=== PATIENT | female | born 1995 | race Caucasian/White ===

== ENCOUNTER 2017-07-14 08:59 | Emergency (ER) | payer SELFPAY ==
[2017-07-14 09:21] VITALS: BP 118/57; PULSE 90; RESP 16; TEMP 36.8; O2SAT 98; BMI 21.2
--- NOTE | 2017-07-14 09:36 | HMH.EDEYEP ---
ED Disposition Clinical Impression: Subconjunctival hemorrhage Disposition: Home, Self-Care Condition on Discharge: Good Instructions: DI for Subconjunctival Hemorrhage Additional Instructions: Tylenol as needed for hangover type of headache, limit alcohol consumption to fewer than three drinks in the future, anticipate change in color of the sclera or whites of eyes as the blood gets reabsorbed over the next few weeks and this bruising resolves. Referrals: Terry Jarvis MD [Primary Care Provider] - - Critical Care Critical Care Time: No Attestation: On 07/14/17, the high probability of a clinically significant, sudden or life threatening deterioration of the following system(s) required my full and direct attention, intervention and personal management. The time I documented below is in addition to time spent performing reported procedures but includes the following listed in this critical care notation. Medical Decision Making - Medical Records Medical records reviewed: Yes: I reviewed the patient's medical records. Vital Signs: 07/14/17 09:21 Temperature 98.2 F Temperature Source Oral Pulse Rate [Right Brachial] 90 Respiratory Rate 16 Blood Pressure [Right Radial Artery] 118/57 Blood Pressure Mean [Right Radial Artery] 77 Blood Pressure Source [Right Radial Artery] Automatic Cuff Blood Pressure Position [Right Radial Artery] Sitting 02 Sat by Pulse Oximetry 98 Oxygen Delivery Method Room Air - Don Inquiry Pt receiving controlled substance: No Eye Problem HPI - General Chief complaint: Eye Problems Stated complaint: red spots in eye Time Seen by Provider: 07/14/17 09:38 Mode of Arrival: Ambulatory Limitations: No Limitations Description of Symptoms (Recalled from ER Triage Doc. by RN): busted blood vessels in both eyes from vomiting this morning. i got a hangover and. was concerned about the eyes - History of Present Illness HPI Narrative: Patient states she drank four shots of alcohol last night and vomited in the middle of the night. She looked at her eyes this morning and noted they were blood shot. No change in vision chief complaint: eye redness - Related Data Patient tetanus UTD: Yes Allergies Allergy/AdvReac Type Severity Reaction Status Date / Time AMOXICILLIN Allergy Intermediate I-RASH Uncoded 06/27/17 15:22 [facility] History - *Social History Alcohol Intake: current Alcohol Intake Frequency:: a few times a month - Psychiatric History Expresses thoughts of harming self/others: None Suicide Plan Description: No Plan ROS Obtained: Yes All systems reviewed & no additional complaints except as noted - Neurologic Reports headache(s), Reports other (Patient reports diffuse headache after drinking and vomiting last night. ) Physical Exam - General General appearance: alert, in no apparent distress - Head Head exam: atraumatic, normocephalic - Eye Eye exam: Present: PERRL, EOMI, conjunctival redness, other (Sub-conjunctival hemorrhages noted bilaterally. No hyphema. Lids and orbits are normal as checked. Her diplopia or visual field cuts noted.) - ENT ENT exam: Present: normal exam - Neck Neck exam: Present: normal inspection - Respiratory Respiratory exam: Absent: respiratory distress - Cardiovascular Cardiovascular exam: Present: regular rate - Neurological Exam Neurological exam: Present: alert, oriented X3, CN II-XII intact, other (Visual acuity reported by RN as normal as checked) - Psychiatric Psychiatric exam: Present: normal affect, normal mood - Skin Skin exam: Present: warm, dry, intact, normal color, other (Other than some conjunctival hemorrhages as noted, atraumatic.). Absent: erythema, pallor, mottled
--- NOTE | 2017-07-14 09:47 | ED_ITS ---
ED Disposition Clinical Impression: Subconjunctival hemorrhage Disposition: Home, Self-Care Condition on Discharge: Good Instructions: DI for Subconjunctival Hemorrhage Additional Instructions: Tylenol as needed for hangover type of headache, limit alcohol consumption to fewer than three drinks in the future, anticipate change in color of the sclera or whites of eyes as the blood gets reabsorbed over the next few weeks and this bruising resolves. Referrals: Terry Jarvis MD [Primary Care Provider] - - Critical Care Critical Care Time: No Attestation: On 07/14/17, the high probability of a clinically significant, sudden or life threatening deterioration of the following system(s) required my full and direct attention, intervention and personal management. The time I documented below is in addition to time spent performing reported procedures but includes the following listed in this critical care notation. Medical Decision Making - Medical Records Medical records reviewed: Yes: I reviewed the patient's medical records. Vital Signs: 07/14/17 09:21 Temperature 98.2 F Temperature Source Oral Pulse Rate [Right Brachial] 90 Respiratory Rate 16 Blood Pressure [Right Radial Artery] 118/57 Blood Pressure Mean [Right Radial Artery] 77 Blood Pressure Source [Right Radial Artery] Automatic Cuff Blood Pressure Position [Right Radial Artery] Sitting 02 Sat by Pulse Oximetry 98 Oxygen Delivery Method Room Air - Don Inquiry Pt receiving controlled substance: No Eye Problem HPI - General Chief complaint: Eye Problems Stated complaint: red spots in eye Time Seen by Provider: 07/14/17 09:38 Mode of Arrival: Ambulatory Limitations: No Limitations Description of Symptoms (Recalled from ER Triage Doc. by RN): busted blood vessels in both eyes from vomiting this morning. i got a hangover and. was concerned about the eyes - History of Present Illness HPI Narrative: Patient states she drank four shots of alcohol last night and vomited in the middle of the night. She looked at her eyes this morning and noted they were blood shot. No change in vision chief complaint: eye redness - Related Data Patient tetanus UTD: Yes Allergies Allergy/AdvReac Type Severity Reaction Status Date / Time AMOXICILLIN Allergy Intermediate I-RASH Uncoded 06/27/17 15:22 [facility] History - *Social History Alcohol Intake: current Alcohol Intake Frequency:: a few times a month - Psychiatric History Expresses thoughts of harming self/others: None Suicide Plan Description: No Plan ROS Obtained: Yes All systems reviewed & no additional complaints except as noted - Neurologic Reports headache(s), Reports other (Patient reports diffuse headache after drinking and vomiting last night. ) Physical Exam - General General appearance: alert, in no apparent distress - Head Head exam: atraumatic, normocephalic - Eye Eye exam: Present: PERRL, EOMI, conjunctival redness, other (Sub-conjunctival hemorrhages noted bilaterally. No hyphema. Lids and orbits are normal as checked. Her diplopia or visual field cuts noted.) - ENT ENT exam: Present: normal exam - Neck Neck exam: Present: normal inspection - Respiratory Respiratory exam: Absent: respiratory distress - Cardiovascular Cardiovascular exam: Present: regular rate - Neurological
[2017-07-14 10:54] VITALS: BP 132/75; PULSE 70; RESP 18; O2SAT 99
== END 2017-07-14 10:59 | disposition home or self-care (01) ==
PROVIDERS: Emergency Provider Emergency Medicine; Family Provider Internal Medicine Adolescent Medicine; PCP Internal Medicine Adolescent Medicine
DX: H11.33 Conjunctival hemorrhage, bilateral (principal)
CPT/HCPCS: 99283

== ENCOUNTER → 2018-12-24 14:50 | Outpatient (CLI) | payer MEDICAID, SELFPAY ==
[2018-12-24 15:31] LABS: Basophils % 0.4 % (0.1-2.0); Eosinophils # 0.2 K/mm3 (0.0-0.4); Eosinophils % 2.3 % (0.1-12.0); Hematocrit 39.8 % (37.0-47.0); Hemoglobin 12.9 g/dL (12.2-16.2); Lymphocytes # 2.9 K/mm3 (0.7-4.5); Lymphocytes % 28.3 % (10-50); Mean Corpuscular HGB Conc 32.6 g/dL (31.8-35.4); Mean Corpuscular Hemoglobin 28.3 pg (27.0-31.2); Mean Platelet Volume 8.3 fl (7.4-10.4); Monocytes # 0.5 K/mm3 (0.1-1.0); Monocytes % 5.2 % (1.7-9.3); Neutrophils # 6.4 K/mm3 (1.8-7.8); Neutrophils % 63.7 % (37.0-80.0); Platelet Count 244 K/mm3 (142-424); Red Blood Count 4.57 M/mm3 (4.20-5.40); Red Cell Distribution Width 12.2 % (11.5-17.5); White Blood Count 10.1 K/mm3 (4.8-10.8)
[2018-12-26 06:27] LABS: HIV Screen 4th Generation wRfx Non Reactive (Non Reactive)
[2018-12-27 07:45] LABS: Hepatitis B Surface Antigen Negative (Negative); Hepatitis C Antibody <0.1 s/co ratio (0.0-0.9); Rapid Plasma Reagin Ab Titer Non Reactive (NonRea<1:1); Rubella Antibodies, IgG <0.90 index (Immune >0.99)
== END ==
PROVIDERS: Visit Provider Nurse Practitioner Obstetrics & Gynecology
DX: Z34.90 Encounter for supervision of normal pregnancy, unspecified, unspecified trimester (principal); Z3A.01 Less than 8 weeks gestation of pregnancy
CPT/HCPCS: 36415; 85025; 86592; 86703; 86762; 86850; 87340; 87380; G0432

== ENCOUNTER → 2018-12-31 13:59 | Outpatient (CLI) | payer MEDICAID, SELFPAY ==
--- NOTE | 2018-12-31 14:01 | US_ITS ---
US OB transvaginal ORDERING PHYSICIAN : Tay Menezes MD PATIENT AGE: 23 years GENDER: Female HISTORY:ITS.REASON: US OB Dates COMPARISON: None TECHNIQUE: Routine transvaginal images. FINDINGS: Exam show single intrauterine fetus along with a yolk sac and gestational sac. The crown-rump length is 1.4 cm corresponding to 7 weeks and 6 days gestational age. Heart rate is 146 bpm. Right ovary is 2.5 x 1.7 x 2.0 cm. Left ovary is 3.4 x 2.3 x 2.7 cm. There is blood flow to both ovaries. There is small amount of cul-de-sac fluid. Left ovary shows a 1.5 cm anechoic focus with distal acoustic enhancement suggesting a small luteal cyst. IMPRESSION: Intrauterine single fetus is described above with heart rate of 146 bpm approximately 7 weeks and 6 days gestational age.
== END ==
PROVIDERS: PCP Internal Medicine Adolescent Medicine; Visit Provider Nurse Practitioner Obstetrics & Gynecology
DX: O26.841 Uterine size-date discrepancy, first trimester (principal)
CPT/HCPCS: 76817

== ENCOUNTER → 2019-03-27 12:11 | Outpatient (CLI) | payer MEDICAID, SELFPAY ==
--- NOTE | 2019-03-27 12:19 | US_ITS ---
PROCEDURE: US OB /MATERNAL DETAIL CLINICAL INDICATION: us ob complete COMPARISON: [facility] US OB transvaginal from 12/31/2018 FINDINGS: Single viable intrauterine gestation. Cephalic position. Placenta: Posteriorplacenta grade 1. There is average amount fluid. The cervix appears satisfactory. Closed and measuring 3 cm in length. Complete survey performed and was unremarkable on the submitted images as in PACS. No discrete anomalies identified on survey imaging by technologist. Active fetus. Three-vessel cord with satisfactory umbilical cord insertion. 4- chamber heart noted. Survey of brain & ventricles Unremarkable. Face and neck survey unremarkable. Diaphragm and chest views unremarkable. Abdomen: Both kidneys noted and unremarkable. Stomach noted and satisfactory. Spine: Survey of the spine satisfactory with no anomalies identified nor imaged. Both arms and legs noted. Amniotic Fluid: Adequate. Maternal adnexa: No significant findings. Measurements: Average ultrasound age 19 weeks 6 days. Gestational Age 20 weeks 0 days Estimated due date by ultrasound age 0208/2019. Estimated weight 313.4 ggrams. BPD = 20 weeks 2 days OFD = 19 weeks 6 days HC = 19 weeks 1 day AC = 20 weeks 0 days FL = 19 weeks 5 days Growth Percentile= 34 percent% Heart Rate = 150 bpm Cerebellum = 20 weeks 1 day Humerus = 20 weeks 0 days HC/AC is 1.11 CI is 0.83 FL/BPD is 0.66 FL/AC is 0.21 IMPRESSION: There is a single live fetus which is in cephalic presentation. heart and body motion noted. Average ultrasound age is 19 weeks 6 days. All parameters correlate. No obvious anomalies apparent. Please see above for detail Dictated by: Juan Rojas MD 03/28/2019 10:06 Electronically signed by Juan Rojas MD in [facility] 03/28/2019 10:06
== END ==
PROVIDERS: PCP Internal Medicine Adolescent Medicine; Visit Provider Nurse Practitioner Obstetrics & Gynecology
DX: Z36.0 Encounter for antenatal screening for chromosomal anomalies (principal)
CPT/HCPCS: 76811

== ENCOUNTER 2019-04-18 12:10 | Outpatient (CLI) | payer MEDICAID, SELFPAY ==
[2019-04-18 12:28] VITALS: BP 123/67; PULSE 80; RESP 18; TEMP 37.3; O2SAT 96; BMI 23.0
[2019-04-18 12:58] LABS: Microscopic, Urine URINE MICROSCOPIC (MICROSCOPIC)
[2019-04-18 13:02] LABS: Appearance,Urine CLEAR (Clear); Bilirubin,Urine Negative (Negative); Blood, Urine Negative (Negative); Color,Urine YELLOW (Yellow); Glucose,Urine (UA) Negative (Negative); Ketones,Urine 1+ (Negative); Leukocyte Esterase,Urine 1+ (Negative); Nitrate,Urine Negative (Negative); Protein,Urine Negative (Negative); Specific Gravity, Urine <= 1.005 (1.005-1.030); Urobilinogen,Urine 0.2 EU/dl (0.2)
[2019-04-18 13:10] LABS: Amphetamine/Metha Screen,Urine Negative ng/mL (<1000); Barbiturates Screen,Urine Negative ng/mL (<200); Benzodiazepines Screen,Urine Negative ng/mL (<200); Cannabinoid Screen,Urine Negative ng/mL (<50); Cocaine Screen,Urine Negative ng/mL (<300); Methadone Screen,Urine Negative ng/mL (<300); Opiate Screen,Urine Negative ng/mL (<300); Phencyclidine Screen,Urine Negative ng/mL (<25)
[2019-04-18 13:13] LABS: Bacteria,Urine 1+ /lpf
== END 2019-04-18 14:12 | disposition home or self-care (01) ==
LOC: OBOUT 12:13 → OB 12:13
PROVIDERS: Obstetrics & Gynecology; PCP Internal Medicine Adolescent Medicine; Visit Provider Nurse Practitioner Obstetrics & Gynecology
DX: O47.02 False labor before 37 completed weeks of gestation, second trimester (principal); Z3A.23 23 weeks gestation of pregnancy; R11.2 Nausea with vomiting, unspecified
CPT/HCPCS: 59025; 80305; 81001; 87086

== ENCOUNTER → 2019-05-23 07:22 | Outpatient (CLI) | payer MEDICAID, SELFPAY ==
[2019-05-23 08:06] LABS: Glucose,Fasting 87 mg/dL (60-105)
[2019-05-23 09:06] LABS: Glucose 1 Hour 152 mg/dL (74-106)
== END ==
PROVIDERS: Visit Provider Nurse Practitioner Obstetrics & Gynecology
DX: Z34.90 Encounter for supervision of normal pregnancy, unspecified, unspecified trimester (principal)
CPT/HCPCS: 36415; 82951

== ENCOUNTER → 2019-07-15 17:46 | Outpatient (CLI) | payer SELFPAY | PROVIDERS: Visit Provider Nurse Practitioner Obstetrics & Gynecology | DX: Z34.90 Encounter for supervision of normal pregnancy, unspecified, unspecified trimester (principal) | CPT/HCPCS: 86403 ==

== ENCOUNTER → 2019-07-18 14:47 | Outpatient (CLI) | payer MEDICAID, SELFPAY ==
--- NOTE | 2019-07-18 14:53 | US_ITS ---
PROCEDURE: US OB BIOPHYSICAL PROFILE CLINICAL INDICATION: US OB BPP Growth- Possible Breech and SGA TECHNIQUE: FINDINGS: There is a single live fetus in breech presentation. The cervix is closed measuring 2.6 cm transabdominal. Following parameters are obtained, average ultrasound age 33 weeks 2 days, BPD 32 weeks 4 days, OFD 35 weeks 3 days, HC 33 weeks 5 days, AC 32 weeks 6 days, FL 33 weeks 4 days. Estimated weight is 2101 g. This is 2 percentile indicating small for gestational age. heart tones are present 132 beats per minute. The placenta is posterior and grade 3. Amniotic fluid index: 5.27cm Qualitative AFV: 2 breathing movements: 2 Gross body movements: 2 Tone: 2 Biophysical profile score: 8 IMPRESSION: 1. Single live fetus in breech presentation with an average ultrasound age 33 weeks 2 days. Estimated weight is 2101 g which is 2nd percentile indicating small for gestational age. 2. Posterior grade 3 placenta. 3. Low amniotic fluid volume/oligohydramnios. 4. Biophysical profile 8 of 8 Dictated by: Juan Rojas MD 07/18/2019 17:41 Electronically signed by Juan Rojas MD in [facility] 07/18/2019 17:41
== END ==
PROVIDERS: PCP Internal Medicine Adolescent Medicine; Visit Provider Nurse Practitioner Obstetrics & Gynecology
DX: O32.1XX0 Maternal care for breech presentation, not applicable or unspecified (principal); O36.5990 Maternal care for other known or suspected poor fetal growth, unspecified trimester, not applicable or unspecified
CPT/HCPCS: 76816; 76819

== ENCOUNTER 2019-07-24 06:01 | Inpatient (IN) ==
[2019-07-24 07:03] LABS: Anion Gap 12.6 mEq/L (5-15); Calcium 8.5 mg/dL (8.5-10.1)
[2019-07-24 07:07] LABS: Basophils % 0.3 % (0.1-2.0); Eosinophils # 0.2 K/mm3 (0.0-0.4); Eosinophils % 1.3 % (0.1-12.0); Hematocrit 35.1 % (37.0-47.0); Hemoglobin 11.4 g/dL (12.2-16.2); Lymphocytes # 3.5 K/mm3 (0.7-4.5); Lymphocytes % 25.1 % (10-50); Mean Corpuscular HGB Conc 32.4 g/dL (31.8-35.4); Mean Corpuscular Volume 85.9 fl (81-99); Mean Platelet Volume 9.2 fl (7.4-10.4); Monocytes # 0.7 K/mm3 (0.1-1.0); Monocytes % 4.8 % (1.7-9.3); Neutrophils # 9.4 K/mm3 (1.8-7.8); Neutrophils % 68.4 % (37.0-80.0); Platelet Count 214 K/mm3 (142-424); Red Blood Count 4.08 M/mm3 (4.20-5.40); Red Cell Distribution Width 13.2 % (11.5-17.5); White Blood Count 13.7 K/mm3 (4.8-10.8)
--- NOTE | 2019-07-24 07:19 | Progress Note ---
[facility] Anesthesia Checklist - Patient Identification Patient Identification: Arm Band, Verbal (Name & ) - Structural Data Admitted From: Home Planned Operative Procedure/s: Consent for Planned Operative Procedure(s) Verified: Yes Verified Documents: Surgical Consent, History and Physical - NPO Status Verified Time NPO: 23:30 - Chart Verification Results Verified: CBC, BMP - Additional verifications Patient : Yes Anesthesia Reactions: No - Airway Assessment C-Spine Mobility Assessed: Yes TMJ Mobility Assessed: Yes Dentition: Good Dentition - Neurological Assessment Level of Consciousness: Awake, Alert, Appropriate, Follows Commands Hx Seizures: No Numbness or tingling in extremities: No - Anesthesia Plan Anesthesia Risk discussed: Yes Anesthesia Plan: Verified ASA Class: II Anesthesia Type: Spinal [facility] History I have reviewed the patient's past medical history: Yes Medical History: Reports:: Gastroesophageal Reflux Disease(GERD) *Have you ever received a pneumonia vaccine?: No *Have you received a flu vaccine this season?: Yes Anesthesia experience/problems:: no complications Laterality Cases: Bilateral: Myringotomy (Ear Tubes), Tonsillectomy Other Surgeries: No: Amputation: No Fractures: No - *Social History Smoking Status: Current every day smoker Tobacco Type: e-cigarettes (juul) Alcohol Intake: current Alcohol Intake Frequency:: a few times a month Substance Use Type: denies use *Occupational Status:: employed *Travel in the last 8 weeks: None (NA) Family Hx:: Hypertension, Hyperlipidemia
--- NOTE | 2019-07-24 08:16 | Operative Note ---
Date of procedure: 07/24/19 Pre-op Diagnosis:: Breech presentation, oligohydramnios, intrauterine growth restriction Post-op Diagnosis:: Breech presentation, oligohydramnios, intrauterine growth restriction Procedure performed:: Primary lower segment transverse section Surgeon:: Tay Menezes MD Machine Accountant(s):: Kamilla Bliss HOUSE MOVER:: Iain Parker Anesthesia: spinal Estimated blood loss (mL): 600 Clinical Note:: She is a 24-year-old 1 para 0 who was 37 weeks gestational age. She has been followed over the last couple of weeks for small for gestational age . The baby was also breech. Last ultrasound showed that the amniotic fluid index was low and the baby was severe IUGR. As result of that we elected to perform a primary lower segment transverse section. Operative findings:: She delivered a liveborn female child at 7:44 AM on the morning of July 24, 2019. The baby had Apgars of 9 at 1 minute and 9 at 5 minutes. She was in the saba breech presentation. There was very little fluid. pH was 7.39. Ovaries and tubes appeared normal. Operative note:: She was taken to the operating room where spinal anesthesia was found be adequate. She was prepped and draped in normal sterile fashion in the supine position with a leftward tilt. A Llanes catheter was in the bladder. A Pfannenstiel skin incision was made with knife then carried through to the underlying layer of fascia with cautery. The fascia was opened in the midline with cautery and extended laterally using Mahoney scissors. Guilford clamps were applied to the superior aspect of the fascial incision which was tented up and the underlying rectus muscles dissected off using cautery. The Priscilla clamps were then applied to the inferior aspect of the fascial incision which in a similar fashion was tented up and the underlying rectus muscles dissected off using cau wendy. The rectus muscles were then in the midline, the peritoneum identified, and entered sharply with Metzenbaum scissors. This incision was then extended superiorly and inferiorly with cautery. We had good visualization of the bladder inferiorly. The bladder peritoneum was then opened in the midline and extended laterally using Metzenbaum scissors. A bladder flap was created digitally. Transverse incision was made through the uterine muscle to the amnion. This incision was then extended laterally using fingers traction. The amnion was entered sharply with knife. There was clear amniotic fluid. The infant's breech was then delivered atraumatically. The rest of the infant's body was then delivered atraumatically. The oropharynx and nasopharynx were bulb suctioned. The was then handed off to Dr. Jarvis who assigned Apgars of 9 at 1 minute and 9 at 5 minutes. We then obtained cord blood as well as cord pH. The pH was 7.39. Using gentle traction on the cord and countertraction on the fundus I was able to easily deliver the placenta intact. It had a normal three-vessel cord. The uterus was then cleared of clots and debris . The uterine incision was then closed using running 0 Vicryl suture in a locked fashion. A second layer of the same suture was used to imbricate the first layer. The bladder peritoneum was then closed using running 2-0 Vicryl suture in a locked fashion. The gutters and cul-de-sac were then cleared of clots and debris . Once again hemostasis was assured. The uterus was then returned to the abdominal cavity. The peritoneum was grasped with Mariposa clamps and closed using running 2-0 Vicryl suture. The rectus muscles were then reapproximated using running 0 Vicryl suture. The fascia was closed using running #1 Vicryl suture. The subcutaneous tissues were then irrigated with warm water followed by closure Juana's fascia using running 2-0 Monocryl suture. The skin was closed with mercedes. I then cleaned the skin with Hibiclens. Sterile dressings were applied. She tolerated the procedure well and was taken to the recovery room in excellent condition. All sponge, instrument and needle counts were correct. Estimated a blood loss was approximately 600 mL. Condition: stable Disposition: PACU Specimens:: Products of conception Complications:: None
--- NOTE | 2019-07-24 08:18 | Progress Note ---
[facility] Anesthesia Record Part I Intake, IV Amount: 600 Estimated blood loss (mL): 600 Urine output (mL): 400 Blood Products used (#): none Blood Pressure: 101/70 SaO2: 96 Pulse Rate: 75 Respiratory Rate: 16 Temperature: 97.1 F Patient is:: Awake, Stable Stable to PACU at:: 08:14
--- NOTE | 2019-07-24 13:13 | Pharmacy Consult Notes ---
[facility] Pharmacy VTE Monitoring - Patient Demographics Admission date: 07/24/19 Report Date: 07/24/19 Time: 13:12 Allergies/Adverse Reactions: Patient Allergies amoxicillin Allergy (Intermediate, Verified 07/23/19 09:12) Rash Height: 1.55 m Weight: 67.132 kg - VTE Risk Labs: VTE Related Lab Results Hgb 11.4 g/dL (12.2-16.2) L 07/24/19 06:35 Hct 35.1 % (37.0-47.0) L 07/24/19 06:35 Plt Count 214 K/mm3 (142-424) 07/24/19 06:35 BUN 12 mg/dL (7-18) 07/24/19 06:35 Creatinine 0.69 mg/dL (0.55-1.02) 07/24/19 06:35 Estimated Creat Clear 134 mL/min (50-200) 07/24/19 06:35 Clinical Trial Participant: No - Prophylaxis VTE Prophylaxis Ordered?: Yes Types of VTE Prophylaxis: IPCS Thigh High Location of Applied Device: Bilateral Lower Extremeties
--- NOTE | 2019-07-25 06:53 | Progress Note ---
[facility] Anesthesia Record Part II Discharge Time: 08:44 Destination: Obstetric PACU nurse assessment reviewed?: Yes Patient Condition:: Good Anesthesia Complications:: None Swallowing reflex intact?: Yes Cyanosis?: No Blood Pressure: 137/76 Pulse Rate: 67 Temperature: 97.5 F Mental Status: Alert & Oriented Pain level:: 0 Nausea and/or vomitting:: None Intake, IV Amount: 0
[2019-07-25 07:04] LABS: Hematocrit 30.6 % (37.0-47.0); Hemoglobin 10.2 g/dL (12.2-16.2)
--- NOTE | 2019-07-25 16:17 | Progress Note ---
Internal Medicine - PN: Subj *Date: 07/25/19 *Time: 16:15 Interval history: She is doing well today. She is 1 day post section. She is bottlefeeding. Her lochia is normal. Her pain is reasonably well controlled. Exam Vital signs and Labs for Last 24 Hours: Temp Pulse Resp BP Pulse Ox 97.5 F L 67 15 137/76 96 07/25/19 06:53 07/25/19 06:53 07/24/19 08:53 07/25/19 06:53 07/24/19 08:53 Laboratory Results - last 24 hr 07/25/19 06:40: Hgb 10.2 L, Hct 30.6 L I & O for Last 24 hours: Intake & Output 07/23/19 07/24/19 07/25/19 07/26/19 11:59 11:59 11:59 11:59 Intake Total 600 / 600 0 / 0 Output Total 700 / 700 Balance 600 / 600 -700 / -700 Weight 148 lb - Constitutional no acute distress Assessment and Plan (1) Breech presentation delivered Current visit: Yes Status: Acute Category: Medical Code(s): O32.1XX0 - Maternal care for breech presentation, not applicable or unspecified (2) Delivery by section of full-term infant Current visit: Yes Status: Acute Category: Medical Code(s): O82 - Encounter for delivery without indication (3) Oligohydramnios delivered Current visit: Yes Status: Acute Category: Medical Code(s): O41.00X0 - Oligohydramnios, unspecified trimester, not applicable or unspecified (4) Small for gestational age fetus affecting management of mother Current visit: Yes Status: Acute Category: Medical Code(s): O36.5990 - Maternal care for other known or suspected poor growth, unspecified trimester, not applicable or unspecified - Assessment and plan all Dx Assessment and Plan for all problems:: She is doing very well. We will plan to send her home in 48 hours.
--- NOTE | 2019-07-26 09:01 | Progress Note ---
Internal Medicine - PN: Subj *Date: 07/26/19 *Time: 09:00 Interval history: She is doing very well this morning. She is eating and drinking and ambulating. Her pain is well controlled. She is breast-feeding. Exam Vital signs and Labs for Last 24 Hours: Temp Pulse Resp BP Pulse Ox 98.1 F 102 H 18 127/56 L 100 07/26/19 03:58 07/26/19 03:58 07/26/19 03:58 07/26/19 03:58 07/25/19 20:11 I & O for Last 24 hours: Intake & Output 07/23/19 07/24/19 07/25/19 07/26/19 11:59 11:59 11:59 11:59 Intake Total 600 / 600 0 / 0 Output Total 700 / 700 Balance 600 / 600 -700 / -700 Weight 148 lb - Constitutional no acute distress Assessment and Plan (1) Breech presentation delivered Current visit: Yes Status: Acute Category: Medical Code(s): O32.1XX0 - Maternal care for breech presentation, not applicable or unspecified (2) Delivery by section of full-term Current visit: Yes Status: Acute Category: Medical Code(s): O82 - Encounter for delivery without indication (3) Oligohydramnios delivered Current visit: Yes Status: Acute Category: Medical Code(s): O41.00X0 - Oligohydramnios, unspecified trimester, not applicable or unspecified (4) Small for gestational age fetus affecting management of mother Current visit: Yes Status: Acute Category: Medical Code(s): O36.5990 - Maternal care for other known or suspected poor growth, unspecified trimester, not applicable or unspecified - Assessment and plan all Dx Assessment and Plan for all problems:: She continues to do very well. We will see her back again in the morning. We will plan to send her home tomorrow.
[2019-07-27 06:11] VITALS: BP 109/59
--- NOTE | 2019-07-27 10:54 | Discharge Summary ---
General - General Admission date:: 07/24/19 Discharge date: 07/27/19 HPI HPI: She is a 24-year-old 1 now para 0 at 37 weeks gestational age. She had a small for gestational age with oligohydramnios. The baby was in the breech presentation. Since she was term with oligo and SGA we elected to deliver her by section on July 24, 2019. Hospital Course Hospital Course: On July 24, 2019 she underwent a primary lower segment transverse section. She delivered a liveborn female child at 7:44 AM. The baby weighed 5 pounds 3 ounces and was 20 inches long. She had Apgars of 9 at 1 minute and 9 at 5 minutes. She is breast-feeding. She has a positive blood, she is rubella immune and was group B streptococcus negative. Her health insurance agent is Dr. Aden. She is discharged home to follow-up with me in approximately 2 weeks time. She will continue with her vitamins and iron. She was given the usual instructions with respect to limiting her activity, driving and sexual activity. She was given a prescription for Percocet 5/325 number 20 tablets. Her mercedes were removed and Steri-Strips applied. Her condition on discharge is stable and improved. Rhogam Administration: Not Indicated Objective Vital signs: Temp Pulse Resp BP Pulse Ox 97.8 F 88 18 109/59 L 97 07/27/19 03:30 07/27/19 03:30 07/27/19 03:30 07/27/19 03:30 07/26/19 20:33 no acute distress DS: Diagnosis - Discharge Diagnosis (1) Breech presentation delivered Status: Acute (2) Delivery by section of full-term infant Status: Acute (3) Oligohydramnios delivered Status: Acute (4) Small for gestational age fetus affecting management of mother Status: Acute Discharge Plan - Patient Discharge Instructions ACTIVITY: No heavy lifting DIET: continue same diet Additional Instructions: no heavy lifting nothing in the vagina for 6 weeks Patient Instructions: How to Care for a Surgical Wound, Depression, , Hemorrhage, DI for Postoperative Pain - Follow up Plan Follow up with: Tay Menezes MD [Staff Physician] - 08/07/19 2:00 pm Disposition: Home, Self-Shelter Medications: Home Medications Medication Instructions Recorded Confirmed Type Vit Calc,Iron,Folic [Kpn] 1 tab PO DAILY 07/24/19 07/24/19 History Oxycodone HCl/Acetaminophen 1 - 2 tab PO Q4-6H PRN #20 tab 07/27/19 Rx [Percocet 5/325mg tablet] Prescriptions/Medication Reconciliation: New Oxycodone HCl/Acetaminophen [Percocet 5/325mg tablet] 1 - 2 tab PO Q4-6H PRN #20 tab PRN Reason: Severe Pain Continued Vit Calc,Iron,Folic [Kpn] 1 tab PO DAILY - Problem Reconciliation Problems Reviewed?: Yes
== END 2019-07-27 12:50 | disposition home or self-care (01) | DRG 787 ==
LOC: OB 06:01
PROVIDERS: ADMIT Nurse Practitioner Obstetrics & Gynecology; ATTEND Nurse Practitioner Obstetrics & Gynecology
CPT/HCPCS: 36415; 59025; 76815; 80048; 81001; 81002; 82800; 85014; 85018; 85025; 86850; 90707; 94761; J1956; J2405; S0077

== ENCOUNTER → 2020-02-11 15:15 | Outpatient (CLI) | payer OTHER, SELFPAY ==
--- NOTE | 2020-02-11 15:18 | US_ITS ---
PROCEDURE: US OB >= 14 WEEKS FETUS CLINICAL INDICATION: US OB DATES COMPARISON: US US OB LIMITED POSITION from 07/24/2019 FINDINGS: There is a single live intrauterine gestation present with an average ultrasound age of 13 weeks 1 day. BPD 30 weeks 5 days, HC 30 weeks 1 day, AC 30 weeks 1 day, FL 12 weeks 6 days. heart tones are present at 151 beats per minute. The amnion and chorion is not yet fused. The fetus is in various position. The uterus is retroverted. Placenta is anterior IMPRESSION: Live IUP at 13 weeks 1 day. This does not constitute an anatomy exam Estimated due date by Ultrasound is 08/17/2020 Dictated b Juan Rojas MD 02/11/2020 19:05 Juan Rojas MD in [facility] 02/11/2020 19:05
== END ==
PROVIDERS: PCP Internal Medicine Adolescent Medicine; Visit Provider Nurse Practitioner Obstetrics & Gynecology
DX: O26.842 Uterine size-date discrepancy, second trimester (principal)
CPT/HCPCS: 76805

== ENCOUNTER → 2020-03-30 14:05 | Outpatient (CLI) | payer OTHER, SELFPAY ==
--- NOTE | 2020-03-30 14:11 | US_ITS ---
PROCEDURE: US OB /MATERNAL DETAIL CLINICAL INDICATION: 20 week gestation Anatomy exam COMPARISON: US US OB >= 14 WEEKS FETUS from 02/11/2020 FINDINGS: There is a single live fetus which is in cephalic presentation. heart and body motion noted. Placenta is posterior and grade 1. The cervix is closed measuring 3 cm transabdominal. Complete survey performed and was unremarkable on the submitted images as in PACS. No discrete anomalies identified on survey imaging by technologist. Active fetus. Three-vessel cord with satisfactory umbilical cord insertion. 4- chamber heart noted. Survey of brain & ventricles Unremarkable. Face and neck survey unremarkable. Diaphragm and chest views unremarkable. Abdomen: Both kidneys noted and unremarkable. Stomach noted and satisfactory. Spine: Survey of the spine satisfactory with no anomalies identified nor imaged. Both arms and legs noted. Amniotic Fluid: Adequate. Maternal adnexa: No significant findings. Measurements: Average ultrasound age 19weeks 4days. Gestational Age 20 weeks Estimated due date by ultrasound age 0208/20/2020. Estimated weight 283g BPD = 20weeks 1day OFD = 19weeks 5days HC = 19weeks 1day AC = 19weeks 4days FL = 19weeks Growth Percentile= 13Percent% Heart Rate = 139bpm Cerebellum = 20weeks 1day Humerus = 20weeks 3days HC/AC is 1.15 CI is 0.82 FL/BPD is 0.62 FL/AC is 0.21 IMPRESSION: Live IUP at 19 weeks 4 days. All parameters correlate with no obvious anomalies. Please see above for detail.. Dictated by: Juan Rojas MD 03/31/2020 11:31 Juan Rojas MD in [facility] 03/31/2020 11:31
== END ==
PROVIDERS: PCP Internal Medicine Adolescent Medicine; Visit Provider Nurse Practitioner Obstetrics & Gynecology
DX: Z34.90 Encounter for supervision of normal pregnancy, unspecified, unspecified trimester (principal); Z3A.20 20 weeks gestation of pregnancy
CPT/HCPCS: 76811

== ENCOUNTER → 2020-06-15 16:01 | Outpatient (CLI) | payer OTHER, SELFPAY | PROVIDERS: Visit Provider Nurse Practitioner Obstetrics & Gynecology | DX: Z34.90 Encounter for supervision of normal pregnancy, unspecified, unspecified trimester (principal) ==

== ENCOUNTER → 2020-06-16 09:01 | Outpatient (CLI) | payer OTHER, SELFPAY ==
[2020-06-16 09:09] LABS: Microscopic, Urine URINE MICROSCOPIC (MICROSCOPIC)
[2020-06-16 09:48] LABS: Appearance,Urine CLEAR (Clear); Bilirubin,Urine Negative (Negative); Blood, Urine Negative (Negative); Color,Urine YELLOW (Yellow); Glucose,Urine (UA) Negative (Negative); Ketones,Urine Negative (Negative); Leukocyte Esterase,Urine Negative (Negative); Nitrate,Urine Negative (Negative); Protein,Urine Negative (Negative); Urobilinogen,Urine 0.2 EU/dl (0.2)
[2020-06-16 10:10] LABS: Ethyl Alcohol < 10 mg/dl (0-10)
[2020-06-16 10:11] LABS: Basophils % 0.3 % (0.1-2.0); Eosinophils # 0.2 K/mm3 (0.0-0.4); Eosinophils % 1.6 % (0.1-12.0); Glucose,Fasting 93 mg/dl (74-100); Hematocrit 35.8 % (37.0-47.0); Lymphocytes # 2.4 K/mm3 (0.7-4.5); Lymphocytes % 20.2 % (10-50); Mean Corpuscular HGB Conc 33.5 g/dL (31.8-35.4); Mean Corpuscular Hemoglobin 28.3 pg (27.0-31.2); Mean Corpuscular Volume 84.4 fl (81-99); Mean Platelet Volume 9.2 fl (7.4-10.4); Monocytes # 0.6 K/mm3 (0.1-1.0); Monocytes % 4.7 % (1.7-9.3); Neutrophils # 8.8 K/mm3 (1.8-7.8); Neutrophils % 73.2 % (37.0-80.0); Platelet Count 229 K/mm3 (142-424); Red Blood Count 4.24 M/mm3 (4.20-5.40); Red Cell Distribution Width 13.5 % (11.5-17.5)
[2020-06-16 12:12] LABS: Glucose 1 Hour 140 mg/dL (74-100)
[2020-06-17 08:48] LABS: HIV Screen 4th Generation wRfx Non Reactive (Non Reactive)
[2020-06-17 11:53] LABS: Hepatitis B Surface Antigen Negative (Negative); Hepatitis C Antibody <0.1 s/co ratio (0.0-0.9); Rubella Antibodies, IgG 1.69 index (Immune >0.99)
[2020-06-17 15:47] LABS: Rapid Plasma Reagin Ab Titer Non Reactive (NonRea<1:1)
[2020-06-23 00:05] LABS: Chlordiazepoxide <0.1 ug/mL (0.1-0.9)
[2020-06-23 11:17] LABS: Acetone <.010 g/dL (0.000-0.010); Butalbital <1 ug/mL (1-10); Diazepam <0.1 ug/mL (0.1-0.9); Ethanol <.010 g/dL (0.000-0.010); Isopropanol <.010 g/dL (0.000-0.010); Pentobarbital <1 ug/mL (1-5)
== END ==
PROVIDERS: Visit Provider Nurse Practitioner Obstetrics & Gynecology
DX: Z34.90 Encounter for supervision of normal pregnancy, unspecified, unspecified trimester (principal); F10.21 Alcohol dependence, in remission
CPT/HCPCS: 36415; 80306; 81001; 82951; 85025; 86592; 86703; 86762; 86850; 87340; 87380; G0432

== ENCOUNTER 2020-07-06 23:24 | Outpatient (CLI) | payer OTHER, SELFPAY ==
[2020-07-06 23:35] VITALS: BMI 27.1
[2020-07-06 23:42] VITALS: BP 116/70; PULSE 89; RESP 18; TEMP 36.4; O2SAT 98; BMI 27.1
[2020-07-06 23:57] LABS: Microscopic, Urine URINE MICROSCOPIC (MICROSCOPIC)
[2020-07-07 00:04] LABS: Appearance,Urine CLEAR (Clear); Bilirubin,Urine Negative (Negative); Blood, Urine Negative (Negative); Color,Urine YELLOW (Yellow); Glucose,Urine (UA) Negative (Negative); Ketones,Urine Negative (Negative); Leukocyte Esterase,Urine Negative (Negative); Nitrate,Urine Negative (Negative); Protein,Urine Negative (Negative); Specific Gravity, Urine 1.015 (1.005-1.030); Urobilinogen,Urine 0.2 EU/dl (0.2)
[2020-07-07 00:15] LABS: Amphetamine/Metha Screen,Urine Negative ng/ml (<1000); Barbiturates Screen,Urine Negative ng/ml (<200)
[2020-07-07 00:16] LABS: Benzodiazepines Screen,Urine Negative ng/ml (<200)
[2020-07-07 00:17] LABS: Cannabinoid Screen,Urine Negative ng/ml (<50); Cocaine Screen,Urine Negative ng/ml (<300)
[2020-07-07 00:18] LABS: Methadone Screen,Urine Negative ng/ml (<300)
[2020-07-07 00:19] LABS: Fetal Membrane Rupture (Rapid) Negative (Negative); Opiate Screen,Urine Negative ng/ml (<300); Phencyclidine Screen,Urine Negative ng/ml (<25)
[2020-07-07 00:31] LABS: Bacteria,Urine 1+ /lpf
== END 2020-07-07 00:32 | disposition home or self-care (01) ==
LOC: OBOUT 23:26 → OB 23:29
PROVIDERS: PCP Internal Medicine Adolescent Medicine; Visit Provider Nurse Practitioner Obstetrics & Gynecology
DX: O26.892 Other specified pregnancy related conditions, second trimester (principal); Z3A.34 34 weeks gestation of pregnancy
CPT/HCPCS: 59025; 80305; 81001; 84112; G0463

== ENCOUNTER → 2020-07-14 17:28 | Outpatient (CLI) | payer OTHER, SELFPAY | PROVIDERS: Visit Provider Nurse Practitioner Obstetrics & Gynecology | DX: Z34.90 Encounter for supervision of normal pregnancy, unspecified, unspecified trimester (principal) | CPT/HCPCS: 86403 ==

== ENCOUNTER → 2020-08-08 12:52 | Outpatient (CLI) | payer OTHER, SELFPAY ==
[2020-08-08 13:50] LABS: Basophils # 0.1 K/mm3 (0-0.2); Basophils % 0.4 % (0.1-2.0); Eosinophils # 0.1 K/mm3 (0.0-0.4); Eosinophils % 0.6 % (0.1-12.0); Hemoglobin 11.2 g/dL (12.2-16.2); Lymphocytes # 2.8 K/mm3 (0.7-4.5); Lymphocytes % 21.9 % (10-50); Mean Corpuscular HGB Conc 32.8 g/dL (31.8-35.4); Mean Corpuscular Volume 79.4 fl (81-99); Mean Platelet Volume 9.6 fl (7.4-10.4); Monocytes # 0.6 K/mm3 (0.1-1.0); Monocytes % 4.6 % (1.7-9.3); Neutrophils # 9.3 K/mm3 (1.8-7.8); Neutrophils % 72.5 % (37.0-80.0); Platelet Count 235 K/mm3 (142-424); Red Blood Count 4.29 M/mm3 (4.20-5.40); Red Cell Distribution Width 13.9 % (11.5-17.5); White Blood Count 12.9 K/mm3 (4.8-10.8)
[2020-08-08 14:30] LABS: Coronavirus 19 IgG Antibody Positive (Negative); Coronavirus 19 IgM Antibody Positive (Negative)
[2020-08-08 14:34] LABS: Anion Gap 12.1 mEq/L (5-15); Blood Urea Nitrogen 6 mg/dl (7-17); Calcium 9.3 mg/dl (8.4-10.2); Carbon Dioxide 21 mmol/L (22.0-30.0); Chloride 102 mmol/L (98-107); Estimated Glomerular Filt Rate 123 ml/min (>60); GFR (African American) 149 ML/MIN (>60); Glucose 83 mg/dl (74-100); Potassium 4.1 mmoL/L (3.5-5.1); Sodium 131 mmol/L (136-145)
--- NOTE | 2020-08-08 17:00 | PC.NURSE ---
Notified patient that covid antibody test was positive and to come in for a swab as son as possible. Pt verbalized understanding.
== END ==
PROVIDERS: Visit Provider Nurse Practitioner Obstetrics & Gynecology
DX: Z01.812 Encounter for preprocedural laboratory examination (principal); Z20.822 Contact with and (suspected) exposure to COVID-19; Z86.16 Personal history of COVID-19; O34.219 Maternal care for unspecified type scar from previous cesarean delivery
CPT/HCPCS: 36415; 80048; 85025; 86328

== ENCOUNTER → 2020-08-09 15:32 | Outpatient (CLI) | payer OTHER, SELFPAY | PROVIDERS: PCP Internal Medicine Adolescent Medicine; Visit Provider Nurse Practitioner Obstetrics & Gynecology | DX: Z20.822 Contact with and (suspected) exposure to COVID-19 (principal) | CPT/HCPCS: U0003 ==

== ENCOUNTER 2020-08-10 05:35 | Inpatient (IN) | payer OTHER, SELFPAY ==
[2020-08-10] VITALS (10 sets, daily range): BP systolic 110–138; BP diastolic 61–90; PULSE 74–113; RESP 16–18; TEMP 36.3–36.8; O2SAT 95–100; BMI 27.8
[2020-08-10 06:14] LABS: Microscopic, Urine URINE MICROSCOPIC (MICROSCOPIC)
[2020-08-10 06:16] LABS: Appearance,Urine CLEAR (Clear); Bilirubin,Urine Negative (Negative); Blood, Urine Negative (Negative); Color,Urine YELLOW (Yellow); Glucose,Urine (UA) Negative (Negative); Ketones,Urine Negative (Negative); Leukocyte Esterase,Urine 1+ (Negative); Nitrate,Urine Negative (Negative); Protein,Urine Negative (Negative); Specific Gravity, Urine 1.025 (1.005-1.030); Urobilinogen,Urine 0.2 EU/dl (0.2)
[2020-08-10 06:46] LABS: Bacteria,Urine 1+ /lpf
[2020-08-10 07:10] LABS: Barbiturates Screen,Urine Negative ng/ml (<200); Benzodiazepines Screen,Urine Negative ng/ml (<200)
[2020-08-10 07:11] LABS: Amphetamine/Metha Screen,Urine Negative ng/ml (<1000)
[2020-08-10 07:12] LABS: Cannabinoid Screen,Urine Negative ng/ml (<50)
[2020-08-10 07:13] LABS: Cocaine Screen,Urine Negative ng/ml (<300); Methadone Screen,Urine Negative ng/ml (<300)
[2020-08-10 07:14] LABS: Opiate Screen,Urine Negative ng/ml (<300); Phencyclidine Screen,Urine Negative ng/ml (<25)
[2020-08-10 07:52] LABS: Cord Blood PH 7.33 (7.35-7.45)
--- NOTE | 2020-08-10 08:10 | HMH.OPNOTE ---
Date of procedure: 08/10/20 Pre-op Diagnosis:: Term , previous section Post-op Diagnosis:: Term , previous section Procedure performed:: Repeat lower segment transverse section Surgeon:: Tay Menezes MD Holistic Specialist(s):: Kamilla Bliss COMPLAINT SUPERVISOR:: Chris Locke Anesthesia: spinal Estimated blood loss (mL): 600 Clinical Note:: She is a 25-year-old 2 para 1 at 39 weeks gestational age. She is had a previous section and as result of that was offered repeat lower segment transverse section at term. Operative findings:: She delivered a liveborn male child at 7:44 AM on the morning of August 10, 2020. Baby had Apgars of 8 at 1 minute and 9 at 5 minutes. pH was 7.33. Ovaries and tubes appeared normal. Operative note:: She was taken to the operating room where spinal anesthesia was found be adequate. She was prepped and draped in normal sterile fashion in the supine position with a leftward tilt. A Llanes catheter was in the bladder. A Pfannenstiel skin incision was made with knife then carried through to the underlying layer of fascia with cautery. I made a crescentic incision around the scar and remove the keloid scar. The fascia was opened in the midline with cautery and extended laterally using Mahoney scissors. Troy clamps were applied to the superior aspect of the fascial incision which was tented up and the underlying rectus muscles dissected off using cautery. The Priscilla clamps were then applied to the inferior aspect of the fascial incision which in a similar fashion was tented up and the underlying rectus muscles dissected off using cautery. The rectus muscles were then in the midline, the peritoneum identified, and entered sharply with Metzenbaum scissors. This incision was then extended superiorly and inferiorly with cautery. We had good visualization of the bladder inferiorly. The bladder peritoneum was then opened in the midline and extended laterally using Metzenbaum scissors. A bladder flap was created digitally. Transverse incision was made through the uterine muscle to the amnion. This incision was then extended laterally using fingers traction. The amnion was entered sharply with knife. There was clear amniotic fluid. The infant's head was then delivered atraumatically. This was followed by the anterior shoulder and the rest of the infant's body atraumatically. The oropharynx and nasopharynx were bulb suctioned. The baby was vigorous so we allowed the cord to continue to pulsate for approximately 1 minute. The cord was then doubly clamped and cut. The was then handed off to Dr. Cullen who assigned Apgars of 8 at 1 minute and 9 at 5 minutes. We then obtained cord blood as well as cord pH. The pH was 7.33. Using gentle traction on the cord and countertraction on the fundus I was able to easily deliver the placenta intact. It had a normal three-vessel cord. The uterus was then cleared of clots and debris . The uterine incision was then closed using running 0 Vicryl suture in a locked fashion. A second layer of the same suture was used to imbricate the first layer. The bladder peritoneum was then closed using running 2-0 Vicryl suture in a locked fashion. The gutters and cul-de-sac were then cleared of clots and debris . Once again hemostasis was assured. The peritoneum was grasped with Mariposa clamps and closed using running 2-0 Vicryl suture. The rectus muscles were then reapproximated using running 0 Vicryl suture. The fascia was closed using running #1 Vicryl suture. The subcutaneous tissues were then irrigated with warm water followed by closure Juana's fascia using running 2-0 Monocryl suture. The skin was closed with mercedes. I then cleaned the skin with Hibiclens. Sterile dressings were applied. She tolerated the procedure well and was taken to the recovery room in excellent condition. All sponges minute and needle counts were correct. Est
--- NOTE | 2020-08-10 08:14 | HMH.OBAPHP ---
OB - H&P: HPI Antepartum - History of Present Illness Chief complaint: Term , previous section History of present illness: She is a 25-year-old 2 para 1 at 39 weeks gestational age who has had a previous section. As result of that she is offered repeat lower segment transverse section at term. - History of Present Criteria for establishing EDC:: LMP confirmed by 1st trimester US care: good care Ultrasounds: normal 1st trimester US, normal mid trimester US Obstetrical complications: previous Medical complications: none - Labs Blood type: A (+) positive Rubella: immune RPR/VDRL: nonreactive GBS status: negative HBsAG: negative [facility] History I have reviewed the patient's past medical history: Yes Medical History: Reports:: Gastroesophageal Reflux Disease(GERD) Denies:: Seizures *Have you ever received a pneumonia vaccine?: No *Have you received a flu vaccine this season?: No Laterality Cases: Bilateral: Myringotomy (Ear Tubes), Tonsillectomy Other Surgeries: Yes: No Previous Surgery, Amputation: No Fractures: No - *Social History Smoking Status: Current every day smoker Tobacco Type: e-cigarettes Alcohol Intake: current Alcohol Intake Frequency:: a few times a month Substance Use Type: denies use *Occupational Status:: employed *Travel in the last 8 weeks: None Family Hx:: Hypertension, Hyperlipidemia Para: 1 Review of Systems - Review of Systems Review of systems:: pertinent systems reviewed and negative unless documented below Meds Home Medications Medication Instructions Recorded Confirmed Type PNV 153-FA 400 mcg-om3 35 mg-dha 2 tab PO DAILY 01/29/20 08/10/20 History 25 mg-epa 5 mg-fish oil chew tablet Allergies Allergy/AdvReac Type Severity Reaction Status Date / Time amoxicillin Allergy Intermediate Rash Verified 08/04/20 16:05 OB - H&P: Exam - Physical Exam Vital signs: Temp Pulse Resp BP Pulse Ox 98.0 F 113 H 18 110/64 97 08/10/20 06:13 08/10/20 06:13 08/10/20 06:13 08/10/20 06:13 08/10/20 06:13 - Constitutional no acute distress - Routine HEENT Exam Head: Present: normocephalic Eye: Present: EOMI, PERRL ENT: Present: mucous membranes moist - Routine Neck Exam Present: supple, full ROM - Routine Respiratory Exam Absent: accessory muscle use (good air entry bilaterally), respiratory distress, wheezes, crackles - Routine Cardiovascular Exam Present: RRR. Absent: murmur - Routine Abdominal Exam Present: soft, normoactive bowel sounds. Absent: tenderness, distended, guarding - Routine Rectal Exam Patient deferred: visual exam, digital exam - Routine Exam Patient deferred: external exam, groin exam, perineal exam - Routine Extremities Exam Present: full ROM. Absent: cyanosis, edema - Routine Skin Exam Present: intact. Absent: cyanosis - Routine Neurological Exam Present: alert, oriented X3 - Routine Psychiatric Exam Present: normal affect OB - Results - Labs Labs: Urine 08/10/20 Range/Units 06:00 Urine Color Yellow (Yellow) Urine Appearance Clear (Clear) Urine pH 6.0 (5.0-8.5) Ur Specific [place] 1.025 (1.005-1.030) Urine Protein Negative (Negative) Urine Glucose (UA) Negative (Negative) OB - A/P Antepartum (1) Previous section complicating , antepartum condition or complication Status: Acute (2) Delivery by section of full-term Status: Acute - Additional Plan Planning to breastfeed?: Yes Plan: other Additional Information:: She is admitted for repeat lower segment transverse section.
--- NOTE | 2020-08-10 08:15 | P.PN_ITS ---
[facility] Anesthesia Record Part I Intake, IV Amount: 2,000 Estimated blood loss (mL): 600 Urine output (mL): 100 Blood Pressure: 136/61 SaO2: 95 Pulse Rate: 85 Respiratory Rate: 16 Temperature: 97.6 F Patient is:: Drowsy, Stable Stable to PACU at:: 08:10
--- NOTE | 2020-08-10 08:15 | HMH.ANESCL ---
[facility] Anesthesia Checklist - Patient Identification Patient Identification: Arm Band - Structural Data Admitted From: Inpatient Planned Operative Procedure/s: Repeat C/s Consent for Planned Operative Procedure(s) Verified: Yes Verified Documents: Surgical Consent, History and Physical - NPO Status Verified Time NPO: 00:00 - Additional verifications Anesthesia Reactions: No - Airway Assessment C-Spine Mobility Assessed: Yes TMJ Mobility Assessed: Yes Dentition: Good Dentition - Neurological Assessment Level of Consciousness: Awake, Alert - Anesthesia Plan Anesthesia Risk discussed: Yes Anesthesia Plan: Verified ASA Class: II Anesthesia Type: Spinal [facility] History I have reviewed the patient's past medical history: Yes Medical History: Reports:: Gastroesophageal Reflux Disease(GERD) Denies:: Seizures *Have you ever received a pneumonia vaccine?: No *Have you received a flu vaccine this season?: No Anesthesia experience/problems:: nac Laterality Cases: Bilateral: Myringotomy (Ear Tubes), Tonsillectomy Other Surgeries: Yes: Amputation: No Fractures: No - *Social History Smoking Status: Current every day smoker Tobacco Type: e-cigarettes Alcohol Intake: current Alcohol Intake Frequency:: a few times a month Substance Use Type: denies use *Occupational Status:: employed *Travel in the last 8 weeks: None Family Hx:: Hypertension, Hyperlipidemia Para: 1
[2020-08-10 09:13] LABS: Microscopic,Cath URINE MICROSCOPIC (MICROSCOPIC)
--- NOTE | 2020-08-10 09:13 | P.CONPHA_ITS ---
[facility] Pharmacy VTE Monitoring - Patient Demographics Admission date: 08/10/20 Report Date: 08/10/20 Time: 09:13 Allergies/Adverse Reactions: Patient Allergies amoxicillin Allergy (Intermediate, Verified 08/04/20 16:05) Rash Height: 1.55 m Weight: 66.735 kg Patient Problems: Current Active Problems Previous section complicating , antepartum condition or complication (Acute) Delivery by section of full-term infant (Acute) - Prophylaxis VTE Prophylaxis Ordered?: Yes Types of VTE Prophylaxis: IPCS Thigh High Location of Applied Device: Bilateral Lower Extremeties
[2020-08-10 09:19] LABS: Appearance,Urine/Cath CLEAR (Clear); Bilirubin,Cath Negative (Negative); Blood, Urine/Cath Negative (Negative); Color,Urine/Cath YELLOW (Yellow); Glucose,Urine/Cath (UA) Negative (Negative); Ketones,Urine/Cath Negative (Negative); Leukocyte Esterase,Cath Negative (Negative); Nitrate,Cath Negative (Negative); PH,Urine/Cath 6.5 (5.0-8.5); Protein,Urine/Cath Negative (Negative); Specific Gravity, Urine/Cath 1.015 (1.005-1.030); Urobilinogen,Cath 0.2 EU/dl (0.2)
--- NOTE | 2020-08-10 09:22 | SUR.PHASEI ---
0839-detailed repot called to Enrique,RN [id number]-pt transported to OB room 277 via hospital bed w/mickey rails up per CAMPBELL Rockwell and CLARE Dixon and left in care of CAMPBELL Raya and CAMPBELL Nunez with bed locked in lowest position, vss, family at bedside, pt stable
--- NOTE | 2020-08-10 09:33 | HMH.ANESII ---
[facility] Anesthesia Record Part II Discharge Time: 08:40 Destination: Obstetric PACU nurse assessment reviewed?: Yes Patient Condition:: Good Anesthesia Complications:: None Swallowing reflex intact?: Yes Cyanosis?: No Blood Pressure: 133/64 Pulse Rate: 75 Temperature: 97.4 F Mental Status: Alert & Oriented Pain level:: 0 Nausea and/or vomitting:: None Intake, IV Amount: 0
[2020-08-10 09:35] LABS: Squamous Epithelial Ur./Cath Occasional #/hpf (0-5)
[2020-08-11 06:44] LABS: Hematocrit 32.5 % (37.0-47.0); Hemoglobin 10.9 g/dL (12.2-16.2)
[2020-08-11 08:39] VITALS: BP 115/57; PULSE 72; RESP 18; TEMP 36.4; O2SAT 98
--- NOTE | 2020-08-11 09:23 | HMH.ACPN2 ---
Internal Medicine - PN: Subj *Date: 08/11/20 *Time: 09:23 Interval history: She is doing well this morning. She is eating and drinking and ambulating. She is breast-feeding. Her lochia is normal. Her pain is well controlled. Exam Vital signs and Labs for Last 24 Hours: Temp Pulse Resp BP Pulse Ox 98.0 F 74 18 114/72 99 08/10/20 16:10 08/10/20 16:10 08/10/20 16:10 08/10/20 16:10 08/10/20 16:10 Laboratory Results - last 24 hr 08/10/20 07:30: Urine Color Yellow, Urine Appearance Clear, Urine pH 6.5, Ur Specific [place] 1.015, Urine Protein Negative, Urine Glucose (UA) Negative, Urine Ketones Negative, Urine Blood Negative, Urine Nitrate Negative, Urine Bilirubin Negative, Urine Urobilinogen 0.2, Ur Leukocyte Esterase Negative, Urine WBC 3-5, Ur Squamous Epith Cells Occasional 08/11/20 06:16: Hgb 10.9 L, Hct 32.5 L I & O for Last 24 hours: Intake & Output 08/08/20 08/09/20 08/10/20 08/11/20 11:59 11:59 11:59 11:59 Intake Total 2370 / 2370 Output Total 300 / 300 2300 / 2300 Balance 2070 / 2070 -2300 / -2300 Weight 147 lb 2 oz Microbiology Reports for the Last 24 Hours: Microbiology 08/10/20 06:00 Urine,Clean Catch Urine Culture - Preliminary NO GROWTH AFTER 24 HOURS - Constitutional no acute distress - *Routine HEENT Exam Head: Present: normocephalic Eye: Present: EOMI, PERRL ENT: Present: mucous membranes moist Assessment and Plan (1) Previous section complicating , antepartum condition or complication Status: Acute Category: Surgical Code(s): O34.219 - Maternal care for unspecified type scar from previous delivery (2) Delivery by section of full-term infant Status: Acute Category: Medical Code(s): O82 - Encounter for delivery without indication - Assessment and plan all Dx Assessment and Plan for all problems:: She is doing very well 1 day from a . Her pain is well controlled and she is breast-feeding. We will plan to send her home in 48 hours.
[2020-08-11 16:11] VITALS: BP 119/62; PULSE 94; RESP 18; TEMP 36.7; O2SAT 99
[2020-08-11 20:00] VITALS: BP 124/74; PULSE 81; RESP 17; TEMP 36.4; O2SAT 99
--- NOTE | 2020-08-12 08:58 | HMH.ACPN2 ---
Internal Medicine - PN: Subj *Date: 08/12/20 *Time: 08:58 Interval history: She is doing well. We will plan to send her home tomorrow. She is breast-feeding. Her pain is well controlled. Exam Vital signs and Labs for Last 24 Hours: Temp Pulse Resp BP Pulse Ox 97.6 F 81 17 124/74 99 08/11/20 20:00 08/11/20 20:00 08/11/20 20:00 08/11/20 20:00 08/11/20 20:00 I & O for Last 24 hours: Intake & Output 08/09/20 08/10/20 08/11/20 08/12/20 11:59 11:59 11:59 11:59 Intake Total 2370 / 2370 Output Total 300 / 300 2300 / 2300 Balance 2070 / 2070 -2300 / -2300 Weight 147 lb 2 oz Microbiology Reports for the Last 24 Hours: Microbiology 08/10/20 06:00 Urine,Clean Catch Urine Culture - Final NO GROWTH AFTER 48 HOURS - Constitutional no acute distress - *Routine HEENT Exam Head: Present: normocephalic Eye: Present: EOMI, PERRL ENT: Present: mucous membranes moist Assessment and Plan (1) Previous section complicating , antepartum condition or complication Status: Acute Category: Surgical Code(s): O34.219 - Maternal care for unspecified type scar from previous delivery (2) Delivery by section of full-term infant Status: Acute Category: Medical Code(s): O82 - Encounter for delivery without indication - Assessment and plan all Dx Assessment and Plan for all problems:: She is 2 days post and doing very well. She is breast-feeding. Her pain is well controlled. We will plan to send her home tomorrow.
[2020-08-12 20:33] VITALS: BP 141/69; PULSE 84; RESP 16; TEMP 36.8; O2SAT 97
[2020-08-13 04:39] VITALS: BP 129/59; PULSE 75; RESP 16; TEMP 36.4; O2SAT 97
--- NOTE | 2020-08-13 09:10 | P.DS_ITS ---
General - General Admission date:: 08/10/20 Discharge date: 08/13/20 HPI HPI: She is a 25-year-old 2 now para 2 at 39 weeks gestational age. She had a previous section and as result of that was brought in for repeat lower segment transverse section at term. Hospital Course Hospital Course: She underwent a repeat lower segment transverse section on August 10, 2020. She delivered a liveborn male child at 7:44 AM. The baby had Apgars of 8 at 1 minute and 9 at 5 minutes. He weighed 6 pounds 12 ounces and was 19 inches long. pH was 7.33. She has done well postoperatively and has remained afebrile throughout her hospitalization. She is eating and drinking and ambulating. She is breast- feeding. Her lochia is normal. She has a positive blood, she is rubella immune and was group B streptococcus negative. Her auto brake technician is Dr. Cullen. She is discharged home to follow-up with me in approximately 2 weeks time. She will continue with her vitamins and iron. She was given a prescription for Percocet 5/325 number 20 tablets. She will take ibuprofen as well. She was given the usual instructions with respect to limiting her activity, driving and sexual activity her condition on discharge is stable and improved. Objective Vital signs: Temp Pulse Resp BP Pulse Ox 97.6 F 75 16 129/59 L 97 08/13/20 04:39 08/13/20 04:39 08/13/20 04:39 08/13/20 04:39 08/13/20 04:39 no acute distress - *Routine HEENT Exam Head: Present: normocephalic Eye: Present: EOMI, PERRL ENT: Present: mucous membranes moist DS: Diagnosis - Discharge Diagnosis (1) Previous section complicating , antepartum condition or complication Status: Acute (2) Delivery by section of full-term Status: Acute Discharge Plan - Patient Discharge Instructions ACTIVITY: No heavy lifting DIET: continue same diet Additional Instructions: No heavy lifting, no strenuous activity, nothing in the Vagina for 6 weeks. Patient Instructions: Depression, Hemorrhage, DI for , DI for Pre-eclampsia, [facility] Post Discharge Instructions, Preventing the Spread of Coronavirus Discharge Instructions - Follow up Plan Disposition: Home, Self-Senior Care Medications: Home Medications Medication Instructions Recorded Confirmed Type PNV 153-FA 400 mcg-om3 35 mg-dha 2 tab PO DAILY 01/29/20 08/10/20 History 25 mg-epa 5 mg-fish oil chew tablet Oxycodone HCl/Acetaminophen 1 tab PO Q4-6H PRN #20 tablet 08/13/20 Rx [Percocet 5/325mg tablet] Prescriptions/Medication Reconciliation: New Oxycodone HCl/Acetaminophen [Percocet 5/325mg tablet] 1 tab PO Q4-6H PRN #20 tablet PRN Reason: Severe Pain Continued PNV 153-FA 400 mcg-om3 35 mg-dha 25 mg-epa 5 mg-fish oil chew tablet 2 tab PO DAILY - Problem Reconciliation Problems Reviewed?: Yes
== END 2020-08-13 12:00 | disposition home or self-care (01) | DRG 788 ==
PROVIDERS: Admitting Provider Nurse Practitioner Obstetrics & Gynecology; PCP Internal Medicine Adolescent Medicine; Visit Provider Nurse Practitioner Obstetrics & Gynecology
PROC: 10D00Z1 Extraction of Products of Conception, Low, Open Approach (ICD-10-PCS; CPT 59514; principal; 2020-08-10 07:30)
DX: O34.211 Maternal care for low transverse scar from previous cesarean delivery (principal); N85.8 Other specified noninflammatory disorders of uterus; Z3A.39 39 weeks gestation of pregnancy; Z37.0 Single live birth
CPT/HCPCS: 59514; 36415; 59025; 80048; 80305; 81001; 82800; 85014; 85018; 85025; 86328; 86850; 87086; 90686; 94761; G0283; J1956; J2405; U0003

== ENCOUNTER → 2023-05-02 16:48 | Outpatient (CLI) | payer OTHER, SELFPAY | PROVIDERS: PCP Internal Medicine Adolescent Medicine; Visit Provider Nurse Practitioner Obstetrics & Gynecology | DX: Z34.91 Encounter for supervision of normal pregnancy, unspecified, first trimester (principal); Z3A.08 8 weeks gestation of pregnancy | CPT/HCPCS: 87086 ==

== ENCOUNTER → 2023-05-25 15:43 | Outpatient (CLI) | payer OTHER, SELFPAY ==
[2023-05-25 16:08] LABS: Basophils % 0.3 % (0.1-2.0); Eosinophils # 0.2 K/mm3 (0.0-0.4); Eosinophils % 1.5 % (0.1-12.0); Hematocrit 37.4 % (37.0-47.0); Lymphocytes # 2.8 K/mm3 (0.7-4.5); Mean Corpuscular HGB Conc 34.8 g/dL (31.8-35.4); Mean Corpuscular Hemoglobin 32.6 pg (27.0-31.2); Mean Corpuscular Volume 93.9 fl (81-99); Mean Platelet Volume 8.7 fl (7.4-10.4); Monocytes # 0.5 K/mm3 (0.1-1.0); Monocytes % 4.3 % (1.7-9.3); Neutrophils # 7.7 K/mm3 (1.8-7.8); Neutrophils % 68.8 % (37.0-80.0); Platelet Count 217 K/mm3 (142-424); Red Blood Count 3.99 M/mm3 (4.20-5.40); Red Cell Distribution Width 12.3 % (11.5-17.5); White Blood Count 11.2 K/mm3 (4.8-10.8)
[2023-05-27 08:46] LABS: Rubella Antibodies, IgG 1.22 index (Immune >0.99)
[2023-05-27 10:41] LABS: Rapid Plasma Reagin Ab Titer Non Reactive titer (NonRea<1:1)
[2023-05-27 12:46] LABS: HIV Screen 4th Generation wRfx Non Reactive; Hepatitis B Surface Antigen Negative; Hepatitis C Antibody Non Reactive
== END ==
PROVIDERS: PCP Internal Medicine Adolescent Medicine; Visit Provider Nurse Practitioner Obstetrics & Gynecology
DX: Z34.91 Encounter for supervision of normal pregnancy, unspecified, first trimester (principal); Z3A.11 11 weeks gestation of pregnancy
CPT/HCPCS: 36415; 85025; 86593; 86703; 86762; 86850; 87340; 87380; G0432

== ENCOUNTER 2023-07-24 09:37 | Outpatient (CLI) | payer OTHER, SELFPAY ==
--- NOTE | 2023-07-24 09:46 | US_ITS ---
PROCEDURE: US OB /MATERNAL DETAIL CLINICAL INDICATION: 20 week anatomy scan COMPARISON: No exams were available for comparison FINDINGS: Transabdominal sonographic images of the pelvis were obtained. From her established due date she is 20 weeks 2 days. Single viable intrauterine gestation. Cephalic position. Placenta: Anteriorplacenta grade 1. There is an average amount of fluid. The cervix appears satisfactory. Closed and measuring 3.97 cm in length. Complete survey performed and was unremarkable on the submitted images as in PACS. No discrete anomalies identified on survey imaging by technologist. Active fetus. Three-vessel cord with satisfactory umbilical cord insertion. 4- chamber heart noted. S[place], aortic arch, LVOT, RVOT, three-vessel view appear normal. Survey of brain & ventricles Unremarkable. Cerebellum, thalamus, choroid plexus, cisterna magna appear normal. Face and neck survey unremarkable. Profile, nasion, lips and nose appeared normal. Diaphragm and chest views unremarkable. Abdomen: Both kidneys noted and unremarkable. Stomach and bladder noted and satisfactory. Spine: Survey of the spine satisfactory with no anomalies identified nor imaged. Cervical, thoracic, lower spine appear normal. Both arms and legs noted. Amniotic Fluid: Adequate. Measurements: Average ultrasound age 19weeks 6days. Estimated due date by ultrasound age 0612/12/2023. Estimated weight 312g BPD = 19weeks 5days HC = 19weeks 4days AC = 19weeks 6days FL = 19weeks 6days Growth Percentile= 20 Heart Rate = 132bpm Cerebellum = 19weeks 3days Humerus = 20weeks 2days HC/AC is 1.17 FL/BPD is 0.7 FL/AC is 0.22 IMPRESSION: 1. Viable fetus in the cephalic presentation with anterior placenta grade 1. 2. The fluid is within normal limits. 3. Anatomical scan appears normal. 4. biometry is consistent with the dates. Dictated by: Tay Menezes MD 07/24/2023 15:37 Tay Menezes MD in [facility] 07/24/2023 15:37
== END 2023-07-24 23:59 ==
LOC: RAD 09:38
PROVIDERS: PCP Internal Medicine Adolescent Medicine; Visit Provider Obstetrics & Gynecology
DX: Z34.92 Encounter for supervision of normal pregnancy, unspecified, second trimester (principal); Z3A.20 20 weeks gestation of pregnancy
CPT/HCPCS: 76811

== ENCOUNTER 2023-10-02 08:06 | Outpatient (CLI) | payer OTHER, SELFPAY ==
[2023-10-02 08:38] LABS: Basophils # 0.1 K/mm3 (0-0.2); Basophils % 0.6 % (0.1-2.0); Eosinophils # 0.2 K/mm3 (0.0-0.4); Eosinophils % 1.7 % (0.1-12.0); Hematocrit 35.4 % (37.0-47.0); Hemoglobin 11.8 g/dL (12.2-16.2); Lymphocytes # 2.4 K/mm3 (0.7-4.5); Mean Corpuscular HGB Conc 33.2 g/dL (31.8-35.4); Mean Corpuscular Hemoglobin 30.5 pg (27.0-31.2); Mean Platelet Volume 9.1 fl (7.4-10.4); Monocytes # 0.6 K/mm3 (0.1-1.0); Monocytes % 5.5 % (1.7-9.3); Neutrophils # 7.5 K/mm3 (1.8-7.8); Neutrophils % 70.2 % (37.0-80.0); Platelet Count 244 K/mm3 (142-424); Red Blood Count 3.85 M/mm3 (4.20-5.40); Red Cell Distribution Width 13.1 % (11.5-17.5); White Blood Count 10.6 K/mm3 (4.8-10.8)
[2023-10-02 09:17] LABS: Glucose,Fasting 95 mg/dl (74-100)
[2023-10-02 10:24] LABS: Glucose 1 Hour 77 mg/dL (74-100)
== END 2023-10-02 23:59 ==
LOC: LAB 08:08
PROVIDERS: PCP Internal Medicine Adolescent Medicine; Visit Provider Obstetrics & Gynecology
DX: O26.893 Other specified pregnancy related conditions, third trimester (principal); O99.611 Diseases of the digestive system complicating pregnancy, first trimester; Z3A.29 29 weeks gestation of pregnancy
CPT/HCPCS: 36415; 82951; 85025

== ENCOUNTER 2023-10-14 08:34 | Outpatient (CLI) | payer OTHER, SELFPAY ==
[2023-10-14 09:07] VITALS: BMI 26.0
[2023-10-14 09:21] LABS: Microscopic, Urine URINE MICROSCOPIC (MICROSCOPIC)
[2023-10-14 09:31] LABS: Appearance,Urine CLEAR (Clear); Bilirubin,Urine Negative (Negative); Blood, Urine Negative (Negative); Color,Urine YELLOW (Yellow); Glucose,Urine (UA) Negative (Negative); Ketones,Urine Negative (Negative); Leukocyte Esterase,Urine Negative (Negative); Nitrate,Urine Negative (Negative); Protein,Urine Negative (Negative); Urobilinogen,Urine 0.2 EU/dl (0.2)
[2023-10-14 09:34] LABS: Amphetamine/Metha Screen,Urine Negative ng/ml (<1000)
[2023-10-14 09:35] LABS: Barbiturates Screen,Urine Negative ng/ml (<200)
[2023-10-14 09:36] LABS: Benzodiazepines Screen,Urine Negative ng/ml (<200); Cannabinoid Screen,Urine Negative ng/ml (<50)
[2023-10-14 09:37] LABS: Cocaine Screen,Urine Negative ng/ml (<300)
--- NOTE | 2023-10-14 09:37 | P.PN_ITS ---
Subjective *Date: 10/14/23 *Time: 09:37 Interval history: She is a 28-year-old 3 para 2 at 31+ weeks gestational age. She came in to labor and delivery with complaints of right upper quadrant discomfort as well as lower abdominal discomfort. Nonstress test is reactive. No contractions. Urinalysis is negative. Medical Exam Vital signs and Labs for Last 24 Hours: Intake and Output 10/13/23 10/14/23 10/14/23 19:59 03:59 11:59 Other: Weight 147 lb Patient Weight 10/14/23 11:59 Weight 147 lb Laboratory Results - last 24 hr 10/14/23 09:10: Urine Color Yellow, Urine Appearance Clear, Urine pH 6.0, Ur Specific [place] 1.010, Urine Protein Negative, Urine Glucose (UA) Negative, Urine Ketones Negative, Urine Blood Negative, Urine Nitrate Negative, Urine Bilirubin Negative, Urine Urobilinogen 0.2, Ur Leukocyte Esterase Negative, Ur Barbituates Screen Negative, Ur Amphetamines Screen Negative I & O for Labs for Last 24 Hours: Intake & Output 10/11/23 10/12/23 10/13/23 10/14/23 11:59 11:59 11:59 11:59 Weight 147 lb Head: Present atraumatic Neck: Present normal inspection Respiratory: Present normal respiratory effort; Absent accessory muscle use GI: Present soft and tenderness (She was slightly tender over both round ligaments.); Absent distention Assessment and Plan *Assessment and plan (1) History of delivery: Status: Acute Category: Surgical Code(s): Z98.891 - History of uterine scar from previous surgery (2) related abdominal pain of lower quadrant, antepartum: Status: Acute Category: Medical Code(s): O26.899 - Other specified related conditions, unspecified trimester; R10.30 - Lower abdominal pain, unspecified Plan 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 She will take the rest of the day off and rest at home. I have reassured her. Nonstress test is reactive. No contractions.
[2023-10-14 09:38] LABS: Methadone Screen,Urine Negative ng/ml (<300); Opiate Screen,Urine Negative ng/ml (<300)
[2023-10-14 09:39] LABS: Phencyclidine Screen,Urine Negative ng/ml (<25)
[2023-10-14 09:47] LABS: Bacteria,Urine Trace /lpf; WBC,Urine Occasional #/hpf (0-3)
== END 2023-10-14 09:50 | disposition home or self-care (01) ==
LOC: OBOUT 08:37 → OB 08:37
PROVIDERS: PCP Internal Medicine Adolescent Medicine; Visit Provider Nurse Practitioner Obstetrics & Gynecology
DX: O26.893 Other specified pregnancy related conditions, third trimester (principal); R10.30 Lower abdominal pain, unspecified; Z3A.32 32 weeks gestation of pregnancy; Z98.891 History of uterine scar from previous surgery
CPT/HCPCS: 80307; 81001; G0463

== ENCOUNTER 2023-10-30 12:49 | Outpatient (CLI) | payer OTHER, SELFPAY ==
--- NOTE | 2023-10-30 12:49 | US_ITS ---
PROCEDURE: US OB BIOPHYSICAL PROFILE CLINICAL INDICATION: sga/ jeb COMPARISON: US US OB /MATERNAL DETAIL from 07/24/2023 FINDINGS: Transabdominal sonographic images of the uterus were obtained. From her established due date she is 34weeks 3days. The following parameters are obtained: Viable Fetus in the cephalic presentation with and anterior placenta grade 2. Average ultrasound age is 31weeks 5days Estimated weight 1,877g The cervix measures 3.8 cm. Measurements: heart Rate = 139bpm BPD = 30 weeks 6 days,<2percentile HC = 31weeks 1day,<2 percentile AC = 31weeks 5days, percentile FL = 33weeks 1day, 12 percentile HC/AC is 1.02 FL/BPD is 0.84 FL/AC is 0.23 3 percentile Amniotic fluid index: 7.96cm, MVP 3.05 cm. Qualitative AFV:2 Breathing movements: 2 Gross Body Movements: 2 Tone: 2 Biophysical profile score: 8 Doppler evaluation of the umbilical artery: SD ratio: 2.69-2.97 Resistive index: 0.63 No obvious anomalies evident.Kidneys, profile, nasion, bladder, stomach, four-chamber heart, three-vessel cord appear normal. IMPRESSION: 1. Viable fetus in the cephalic presentation with an anterior placenta grade 2. 2. The fluid is within normal limits with an amniotic fluid index of 7.96 cm, MVP 3.05 cm. 3. Biophysical profile is 8/8 with good breathing movement and movement seen. 4. SD ratio is normal at 2.6 9-2.90 5. Fetus is symmetrically small for gestational age currently 3rd percentile. Dr. Sherman was notified. Dictated by: Tay Menezes MD 10/30/2023 21:06 Tay Menezes MD in [place] 10/30/2023 21:06
== END 2023-10-30 23:59 | disposition home or self-care (01) ==
LOC: RAD 12:49
PROVIDERS: PCP Internal Medicine Adolescent Medicine; Visit Provider Obstetrics & Gynecology
DX: O36.5930 Maternal care for other known or suspected poor fetal growth, third trimester, not applicable or unspecified (principal); O28.8 Other abnormal findings on antenatal screening of mother; Z3A.34 34 weeks gestation of pregnancy
CPT/HCPCS: 76816; 76819; 76820

== ENCOUNTER 2023-11-13 13:12 | Outpatient (CLI) | payer OTHER, SELFPAY ==
--- NOTE | 2023-11-13 13:13 | US_ITS ---
PROCEDURE: US OB BIOPHYSICAL PROFILE CLINICAL INDICATION: iugr, growth and CYNTHIA COMPARISON: US US OB BIOPHYSICAL PROFILE from 10/30/2023 FINDINGS: Transabdominal sonographic images of the uterus were obtained. From her established due date she is 36weeks 3days. The following parameters are obtained: Viable Fetus in the cephalic presentation with an anterior placenta grade 2. Average ultrasound age is 33weeks 4days Estimated weight 2,227g, 4 lb 15 oz Cervix measures 4.8 cm. Measurements: heart Rate = 134bpm BPD = 32weeks 4days, < 2nd percentile HC = 33weeks 6days,< 2nd percentile AC = 33weeks 2days,< 2nd percent FL = 34weeks 4days, 8 percentile HC/AC is 1.04 FL/BPD is 0.83 FL/AC is 0.23 3 percentile Amniotic fluid index: 6.57cm, MVP 2.57 cm Qualitative AFV:2 Breathing movements: 2 Gross Body Movements: 2 Tone: 2 Biophysical profile score: 8 Doppler evaluation of the umbilical artery: SD ratio: 2.10-2.6. Resistive index: 0.56 No obvious anomalies evident.Kidneys, profile, stomach, bladder, four-chamber heart, three-vessel cord appear normal. IMPRESSION: 1. Viable fetus in the cephalic presentation with anterior placenta grade 2. 2. The fluid is within normal limits with an amniotic fluid index of 6.57 cm, MVP 2.57 cm. Subjectively the fluid looks low. 3. Biophysical profile 8/8 with good breathing movement and movement seen. 4. SD ratio is 2.1-2.6 normal. 5. Fetus continues to be symmetrically small for gestational age currently 3rd percentile. Dictated by: Tay Menezes MD 11/13/2023 16:39 Tay Menezes MD in [place] 11/13/2023 16:39
== END 2023-11-13 23:59 | disposition home or self-care (01) ==
LOC: RAD 13:13
PROVIDERS: PCP Internal Medicine Adolescent Medicine; Visit Provider Obstetrics & Gynecology
DX: O36.5930 Maternal care for other known or suspected poor fetal growth, third trimester, not applicable or unspecified (principal); O28.8 Other abnormal findings on antenatal screening of mother; Z3A.36 36 weeks gestation of pregnancy
CPT/HCPCS: 76816; 76819; 76820

== ENCOUNTER 2023-11-20 14:59 | Outpatient (CLI) | payer OTHER, SELFPAY ==
--- NOTE | 2023-11-20 15:00 | US_ITS ---
PROCEDURE: US OB BIOPHYSICAL PROFILE CLINICAL INDICATION: sga/ jeb COMPARISON: US US OB BIOPHYSICAL PROFILE from 10/30/2023 US US OB BIOPHYSICAL PROFILE from 11/13/2023 FINDINGS: Transabdominal sonographic images of the uterus were obtained. From her established due date she is 37weeks 3days. The following parameters are obtained: Viable Fetus in the cephalic presentation with and anterior placenta grade 2-3. Cervix measures 2.87 cm. Measurements: heart Rate = 139bpm Amniotic fluid index: 8.50 cm, MVP 3.18 cm. Qualitative AFV:2 Breathing movements: 2 Gross Body Movements: 2 Tone: 2 Biophysical profile score: 8 No obvious anomalies evident.Kidneys, stomach, four-chamber heart, three-vessel cord appear normal. IMPRESSION: 1. Viable fetus in the cephalic presentation with an anterior placenta grade 2-3. 2. The fluid is within normal limits with an amniotic fluid index of 8.50 cm, MVP 3.18 cm. 3. Biophysical profile 8/8 with good breathing movement and movement seen. 4. Limited anatomical scan appears normal. Dictated by: Tay Menezes MD 11/20/2023 17:20 Tay Menezes MD in [place] 11/20/2023 17:20
== END 2023-11-20 23:59 | disposition home or self-care (01) ==
LOC: RAD 15:00
PROVIDERS: PCP Internal Medicine Adolescent Medicine; Visit Provider Obstetrics & Gynecology
DX: O36.5930 Maternal care for other known or suspected poor fetal growth, third trimester, not applicable or unspecified (principal); O28.8 Other abnormal findings on antenatal screening of mother; Z3A.37 37 weeks gestation of pregnancy
CPT/HCPCS: 76819; 86403

== ENCOUNTER 2023-11-23 15:03 | Outpatient (CLI) | payer OTHER, SELFPAY ==
[2023-11-23 15:19] VITALS: BP 121/72; PULSE 89; RESP 16; TEMP 37.1; O2SAT 96; BMI 27.1
== END 2023-11-23 15:48 | disposition home or self-care (01) ==
LOC: OBOUT 15:04 → OB 15:04
PROVIDERS: PCP Internal Medicine Adolescent Medicine; Visit Provider Obstetrics & Gynecology
DX: O26.893 Other specified pregnancy related conditions, third trimester (principal); Z3A.37 37 weeks gestation of pregnancy
CPT/HCPCS: G0463

== ENCOUNTER 2023-11-28 05:07 | Inpatient (IN) | payer OTHER, SELFPAY ==
[2023-11-28 05:13] VITALS: BMI 27.1
[2023-11-28 05:23] VITALS: BMI 27.1
[2023-11-28] MEDS: LACTATED RINGERS 1000ML 1,000 ML 100 ML IV (05:39)
[2023-11-28 05:56] VITALS: BP 108/56; PULSE 86; RESP 18; TEMP 36.5; O2SAT 96
[2023-11-28 06:01] LABS: Microscopic, Urine URINE MICROSCOPIC (MICROSCOPIC)
[2023-11-28 06:13] LABS: Basophils # 0.1 K/mm3 (0-0.2); Basophils % 0.5 % (0.1-2.0); Eosinophils # 0.2 K/mm3 (0.0-0.4); Eosinophils % 1.2 % (0.1-12.0); Hematocrit 33.8 % (37.0-47.0); Hemoglobin 11.1 g/dL (12.2-16.2); Lymphocytes # 3.8 K/mm3 (0.7-4.5); Lymphocytes % 29.9 % (10-50); Mean Corpuscular HGB Conc 32.8 g/dL (31.8-35.4); Mean Corpuscular Hemoglobin 27.8 pg (27.0-31.2); Mean Corpuscular Volume 84.6 fl (81-99); Mean Platelet Volume 10.3 fl (7.4-10.4); Monocytes # 0.7 K/mm3 (0.1-1.0); Monocytes % 5.3 % (1.7-9.3); Neutrophils # 8.1 K/mm3 (1.8-7.8); Platelet Count 233 K/mm3 (142-424); Red Blood Count 3.99 M/mm3 (4.20-5.40); Red Cell Distribution Width 13.9 % (11.5-17.5); White Blood Count 12.8 K/mm3 (4.8-10.8)
[2023-11-28 06:19] LABS: Alanine Aminotransferase 23 U/L (12-78); Albumin Level 3.4 g/dl (3.5-5.0); Albumin/Globulin Ratio 1.2 (1.1-1.8); Alkaline Phosphatase 178 U/L (38-126); Anion Gap 11.5 mEq/L (5-15); Aspartate Amino Transferase 28 U/L (14-36); Bilirubin,Total 0.3 mg/dl (0.2-1.3); Blood Urea Nitrogen 6 mg/dl (7-17); Calcium 9.1 mg/dl (8.4-10.2); Carbon Dioxide 21 mmol/L (22.0-30.0); Chloride 107 mmol/L (98-107); Creatinine Clearance Estimated 154 mL/min (50-200); Estimated Glomerular Filt Rate 120 ml/min (>60); GFR (African American) 145 ML/MIN (>60); Globulin 2.9 g/dL (1.3-3.2); Glucose 89 mg/dl (74-100); Potassium 3.5 mmoL/L (3.5-5.1); Sodium 136 mmol/L (136-145); Total Protein,Serum 6.3 g/dl (6.3-8.2)
[2023-11-28 06:28] LABS: Appearance,Urine CLEAR (Clear); Bilirubin,Urine Negative (Negative); Blood, Urine Negative (Negative); Color,Urine YELLOW (Yellow); Glucose,Urine (UA) Negative (Negative); Ketones,Urine Negative (Negative); Leukocyte Esterase,Urine 1+ (Negative); Nitrate,Urine Negative (Negative); Protein,Urine Negative (Negative); Urobilinogen,Urine 0.2 EU/dl (0.2)
[2023-11-28 06:37] LABS: Barbiturates Screen,Urine Negative ng/ml (<200)
[2023-11-28 06:38] LABS: Benzodiazepines Screen,Urine Negative ng/ml (<200)
[2023-11-28 06:39] LABS: Amphetamine/Metha Screen,Urine Negative ng/ml (<1000); Cocaine Screen,Urine Negative ng/ml (<300)
[2023-11-28 06:40] LABS: Cannabinoid Screen,Urine Negative ng/ml (<50); Methadone Screen,Urine Negative ng/ml (<300)
[2023-11-28 06:41] LABS: Opiate Screen,Urine Negative ng/ml (<300)
[2023-11-28 06:42] LABS: Phencyclidine Screen,Urine Negative ng/ml (<25)
[2023-11-28 06:56] LABS: Bacteria,Urine 2+ /lpf; Squamous Epithelial Cell,Urine 20-50 #/hpf (0-5); Yeast,Urine 1+ /lpf
--- NOTE | 2023-11-28 07:01 | EXP.ANES.CKL ---
[facility] Disclaimer: The information contained in this section may have been updated after the patient was seen, as this information can be updated by other users. Medical History Symmetric IUGR complicating , antepartum Constipation during Acute asthma Surgical History History of delivery History of dental surgery Family History Other Alcoholism Asthma Cancer Coronary artery disease Heart attack Hyperlipidemia Hypertension Social History Smoking Status: Current every day smoker tobacco type: e-cigarettes alcohol intake: current alcohol intake frequency: a few times a month substance use type: denies use current occupational status: employed Travel in the last 8 weeks: None [facility] Anesthesia Checklist Patient Identification Patient Identification: Arm Band and Verbal (Name & ) Structural Data Admitted From: Home Planned Operative Procedure/s: Repeat C/S Consent for Planned Operative Procedure(s) Verified: Yes NPO Status Verified Time NPO: 00:00 Chart Verification Results Verified: CBC and BMP Additional verifications Anesthesia Reactions: No Airway Assessment Mallampati Score:: Class I C-Spine Mobility Assessed: Yes TMJ Mobility Assessed: Yes Dentition: Good Dentition Neurological Assessment Level of Consciousness: Awake Hx Seizures: No Numbness or tingling in extremities: No Anesthesia Plan Anesthesia Risk discussed: Yes Anesthesia Plan: Verified ASA Class: II Anesthesia Type: Spinal
--- NOTE | 2023-11-28 07:21 | P.HP_ITS ---
OB - H&P: HPI Antepartum History of Present Illness Chief complaint: Scheduled repeat History of present illness: Ms Pao Richmond is a 28 yo at 38w3d who presents to [facility] [place] Labor and Delivery for scheduled repeat . History of x 2. complicated by IUGR. Growth ultrasound 11/12 demonstrated 3 %ile, normal S/D ratio, CYNTHIA WNL. BPP 8/8. She has had good care. History of Present Criteria for establishing EDC:: based on 1st trimester US only care: good care Ultrasounds: normal mid trimester US Obstetrical complications: growth restriction and previous Medical complications: none Labs Blood type: A (+) positive Rubella: immune RPR/VDRL: nonreactive HBsAG: negative PFSH [facility] Disclaimer: The information contained in this section may have been updated after the patient was seen, as this information can be updated by other users. Medical History (Updated 11/28/23 @ 07:27 by Siobhan Sherman DO) 38 weeks gestation of Symmetric IUGR complicating , antepartum Constipation during Acute asthma Surgical History History of delivery History of dental surgery Family History Other Alcoholism Asthma Cancer Coronary artery disease Heart attack Hyperlipidemia Hypertension Social History Smoking Status: Current every day smoker tobacco type: e-cigarettes alcohol intake: current alcohol intake frequency: a few times a month substance use type: denies use current occupational status: employed Travel in the last 8 weeks: None Review of Systems Review of Systems Review of systems:: pertinent systems reviewed and negative unless documented below Meds Home Medications and Allergies Home Medications Medication Instructions Recorded Confirmed Type vitamin with calcium 1 tab PO DAILY 07/24/23 11/27/23 History no.72-iron 27 mg-folic acid 1 mg tablet (WesTab Plus) New Prescriptions to Start Prescriptions: Allergies Allergy/AdvReac Type Severity Reaction Status Date / Time amoxicillin Allergy Intermediate Rash Verified 11/27/23 14:23 OB - H&P: Exam Physical Exam Vital signs: Temp Pulse Resp BP Pulse Ox O2 Del Method 97.7 F 86 18 108/56 L 96 Room Air 11/28/23 05:56 11/28/23 05:56 11/28/23 05:56 11/28/23 05:56 11/28/23 05:56 11/28/23 05:56 Constitutional no acute distress and cooperative Routine HEENT Exam Head: Present normocephalic and atraumatic Eye: Absent conjunctivae pink ENT: Present mucous membranes moist Routine Neck Exam Present full ROM Routine Respiratory Exam Present CTA bilaterally and normal respiratory effort Routine Cardiovascular Exam Present RRR Routine Abdominal Exam Present soft (Gravid); Absent tenderness Routine Exam External: Present normal urethra appearance; Absent erythema, tenderness, lesions or lacerations Routine Extremities Exam Present full ROM; Absent edema or calf tenderness Routine Neurological Exam Present alert, moving all extremities and normal speech Routine Psychiatric Exam Present normal affect and cooperative OB - Results Labs Labs: Short CBC 11/28/23 Range/Units 05:33 WBC 12.8 H (4.8-10.8) K/mm3 Hgb 11.1 L (12.2-16.2) g/dL Hct 33.8 L (37.0-47.0) % Plt Count 233 (142-424) K/mm3 BMP 11/28/23 05:33 Sodium 136 Potassium 3.5 Chloride 107 Carbon Dioxide 21 L BUN 6 L Creatinine 0.60 Glucose 89 Calcium 9.1 Liver Function 11/28/23 Range/Units 05:33 Total Bilirubin 0.3 (0.2-1.3) mg/dl AST 28 (14-36) U/L ALT 23 (12-78) U/L Alkaline Phosphatase 178 H (38-126) U/L Albumin 3.4 L (3.5-5.0) g/dl Urine 11/28/23 Range/Units 05:35 Urine Color Yellow (Yellow) Urine Appearance Clear (Clear) Urine pH 6.0 (5.0-8.5) Ur Specific [place] 1.020 (1.005-1.030) Urine Protein Negative (Negative) Urine Glucose (UA) Negative (Negative) OB - A/P Antepartum (1) 38 weeks gestation of : Status: Acute (2) Symmetric IUGR complicating , antepartum: Status: Acute (3) History of delivery: Problem details: x 2 Status: Acute Additional Plan Planning to breastfeed?: Yes Additional Information:: Admit to [facility] [place] L&D for scheduled repeat secondary to IUGR Reviewed risks, benefits, alternatives, expectations and possible complications for surgery. All questions addressed and answered. She voiced understanding of risks and possible complications. Consent form signed. Proceed with scheduled repest
[2023-11-28] MEDS: CLINDAMYCIN PHOSPHATE/D5W 900 MG/50 ML PIGGYBACK 100 MG IV ×3 (07:50→23:11)
[2023-11-28 08:40] VITALS: BP 130/81; PULSE 76; RESP 16; TEMP 36.4; O2SAT 99
[2023-11-28 08:50] VITALS: BP 112/70; PULSE 65; RESP 16; TEMP 36.4; O2SAT 98
--- NOTE | 2023-11-28 08:55 | P.OP_ITS ---
Date of procedure: 11/28/23 Pre-op Diagnosis:: 1. IUP at 38 weeks 3 days 2. IUGR 3. History of x 2 Post-op Diagnosis:: 1. IUP at 38 weeks 3 days 2. IUGR 3. History of x 2 Procedure performed:: Repeat Low Transverse Section Surgeon:: Siobhan Sherman DO [employer] Director(s):: Prisca Zaldivar DO OPTICS ENGINEER:: Yeison Rosado Anesthesia: spinal Estimated blood loss (mL): 200 Clinical Note:: Ms Pao Richmond is a 28 yo at 38w3d who presents to [facility] Labor and Delivery for scheduled repeat . History of x 2. complicated by IUGR. Growth ultrasound 11/12 demonstrated 3 %ile, normal S/D ratio, CYNTHIA WNL. BPP 02/14. She has had good care. Operative findings:: 1. Live female baby weighing 5 lb 14 oz, APGARs 8 (1 min), 9 (5 min) 2. Nuchal cord x 1, easily reduced 3. Grossly normal appearing uterus, bilateral fallopian tubes and ovaries Operative note:: The risks, benefits and alternatives of the procedure were reviewed with the patient. Informed consent was obtained. Patient was taken to the operating room where spinal anesthesia was placed. The patient received Clindamycin and Gentamicin preoperatively. Patient was placed in dorsal supine position with a leftward tilt. SCDs in place. Llanes catheter had been placed and was draining clear urine prior to the start of the procedure. heart tones were obtained. Patient was then prepped and draped in normal sterile fashion. Allis clamp test was performed to ensure adequate anesthesia. Skin incision was made along prior Pfannenstiel scar. This was carried through to underlying layer of fascia. Fascia was incised in midline, extended laterally with Mahoney scissors. Superior aspect of fascial incision was grasped with two Ha clamps, elevated up, and rectus muscle dissected off bluntly and sharply with Mahoney scissors. The rectus muscle was then in the midline and the peritoneum was entered bluntly with a digit. Peritoneal incision was then extended superiorly and inferiorly with good visualization of the bladder. Sander retractor was inserted. The lower uterine segment was incised in a transverse fashion. Clear amniotic fluid was noted. Head was delivered without difficulty. Nuchal x 1 was easily reduced. Remainder of body was delivered without difficulty. Mouth and nares were bulb suctioned. Spontaneous cry was noted. Delayed cord clamping was performed for 60 seconds. The umbilical cord was clamped and cut. The infant was handed to awaiting pediatric staff in stable condition. Dr. Cullen was present. Apgars were 8(1 min), 9(5 min). Cord blood was obtained. Gentle traction on the umbilical cord and uterine fundal massage delivered the placenta. Placenta was intact. Placenta will be sent to pathology for review. Uterus was cleared of all clots and debris with a moist laparotomy sponge. Corners of the uterine incision were grasped with Allis clamps. The uterine incision was reapproximated with # 1 Vicryl suture in a running, locked stitch. Second layer of the same stitch was used to imbricate the incision. Hemostasis was noted. Posterior cul-de-sac was cleaned with moist laparotomy sponge. Gutters cleared of all clots and debris with a moist laparotomy sponge. Reinspection of the lower uterine segment demonstrated hemostasis. At this point all instruments and sponges were removed from the pelvis.? The peritoneum was grasped with Mariposa clamps x 3. The peritoneum was reapproximated with 0 Vicryl suture in a running stitch. The corners of the fascia were grasped with Ha clamps, and the fascia was reapproximated with two # 1 Vicryl suture overlapped to the right of midline. Subcutaneous tissue was irrigated with clear return of fluids. The subcutaneous tissue was reapproximated with 3-0 Vicryl. The skin was reapproximated with Insorb mercedes. Telfa was placed over closed Pfannenstiel skin incision. At the end of the procedure, the uterus was firm with minimal vaginal bleeding. Patient tolerated the procedure well. Instrument, sponges and needle counts were correct x 2. Mom and baby were transported to recovery room in stable condition. Condition: stable Disposition: floor Specimens:: 1. Placenta and umbilical cord 2. Cord blood Complications:: None
[2023-11-28] MEDS: GENTAMICIN SULFATE 350 MG in 0.9 % SODIUM CHLORIDE 100 ML 100 MG IV (08:58)
[2023-11-28 09:00] VITALS: BP 118/73; PULSE 75; RESP 16; TEMP 36.4; O2SAT 98
[2023-11-28 09:10] VITALS: BP 121/82; PULSE 75; RESP 16; TEMP 36.4; O2SAT 98
[2023-11-28] MEDS: LACTATED RINGERS 1000ML 1,000 ML 125 ML IV (09:42)
[2023-11-28] MEDS: OXYTOCIN/RINGERS LACTATE 30 UNITS/500 ML BAG 40 UNITS IV (09:43)
[2023-11-28] MEDS: ACETAMINOPHEN 500MG TAB 1000 MG PO ×2 (09:44→17:02)
[2023-11-28] MEDS: SIMETHICONE 80MG CHEWABLE TABLET 160 MG PO ×2 (10:10→19:56)
[2023-11-28] MEDS: OXYCODONE 5MG IMMEDIATE RELEASE TABLET 5 MG PO ×3 (10:10→19:57)
[2023-11-28] MEDS: SENNA 8.6MG TABLET 8.59999999999999964 MG PO ×2 (10:11→19:56)
[2023-11-28] MEDS: HYDROMORPHONE 2MG/ML SYRINGE 1 MG IV (11:40)
[2023-11-28 14:22] LABS: Microscopic,Cath URINE MICROSCOPIC (MICROSCOPIC)
[2023-11-28] MEDS: KETOROLAC 30MG/ML VIAL 30 MG IV ×2 (14:30→19:56)
[2023-11-28 14:35] LABS: Appearance,Urine/Cath CLEAR (Clear); Bilirubin,Cath Negative (Negative); Blood, Urine/Cath Negative (Negative); Color,Urine/Cath YELLOW (Yellow); Glucose,Urine/Cath (UA) Negative (Negative); Ketones,Urine/Cath Negative (Negative); Leukocyte Esterase,Cath Negative (Negative); Nitrate,Cath Negative (Negative); Protein,Urine/Cath Negative (Negative); Urobilinogen,Cath 0.2 EU/dl (0.2)
[2023-11-28 15:49] LABS: WBC,Urine/Cath Occasional #/hpf (0-3)
[2023-11-28 16:45] VITALS: BP 111/64; PULSE 77; RESP 16; TEMP 37; O2SAT 98
[2023-11-28] MEDS: PRENATAL MULTIVITAMIN W/IRON 1 EACH PO (17:03)
[2023-11-29] MEDS: OXYCODONE 5MG IMMEDIATE RELEASE TABLET 5 MG PO ×3 (01:35→21:06)
[2023-11-29] MEDS: ACETAMINOPHEN 500MG TAB 1000 MG PO ×4 (01:35→21:06)
[2023-11-29] MEDS: KETOROLAC 30MG/ML VIAL 30 MG IV (01:36)
[2023-11-29] MEDS: HYDROMORPHONE 2MG/ML SYRINGE 2 MG IV (03:07)
[2023-11-29 07:16] LABS: Basophils % 0.3 % (0.1-2.0); Eosinophils # 0.1 K/mm3 (0.0-0.4); Eosinophils % 0.7 % (0.1-12.0); Hematocrit 35.1 % (37.0-47.0); Hemoglobin 11.7 g/dL (12.2-16.2); Lymphocytes # 1.5 K/mm3 (0.7-4.5); Lymphocytes % 10.1 % (10-50); Mean Corpuscular HGB Conc 33.4 g/dL (31.8-35.4); Mean Corpuscular Hemoglobin 28.2 pg (27.0-31.2); Mean Corpuscular Volume 84.5 fl (81-99); Mean Platelet Volume 10.1 fl (7.4-10.4); Monocytes # 0.7 K/mm3 (0.1-1.0); Monocytes % 4.5 % (1.7-9.3); Neutrophils # 12.8 K/mm3 (1.8-7.8); Neutrophils % 84.4 % (37.0-80.0); Platelet Count 210 K/mm3 (142-424); Red Blood Count 4.15 M/mm3 (4.20-5.40); White Blood Count 15.2 K/mm3 (4.8-10.8)
[2023-11-29 07:23] LABS: MANUAL DIFFERENTIAL MANUAL DIFFERENTIAL (MANUAL DIFF)
[2023-11-29] MEDS: IBUPROFEN 400 MG TABLET 800 MG PO ×2 (08:49→16:49)
[2023-11-29 09:46] LABS: Eosinophils % 1 % (0-3); Lymphocytes % 16 % (10-50); Monocytes % 2 % (2-9); Neutrophils % 81 % (42-76); Platelet Estimate Normal; RBC Morphology Normal; Total Cells Counted 100
[2023-11-29] MEDS: POLYETHYLENE GLYCOL 3350 17 GM PACKET PO (09:50)
--- NOTE | 2023-11-29 13:08 | EXP.ACUTE.PN ---
Subjective *Date: 11/29/23 *Time: 13:08 Interval history: POD # 1 s/p RLTCS Feeling okay. Pain not well controlled. Breast and formula feeding. Lochia is appropriate. Voiding without difficulty and passing flatus. Tolerating regular diet. Denies fever/chills, chest pain and shortness of breath. No headaches, vision changes, lightheadedness/dizziness. No lower extremity swelling. Ambulating well ad mateus. Medical Exam Vital signs and Labs for Last 24 Hours: Vital Signs Temp Pulse Resp BP Pulse Ox O2 Del Method 11/28/23 16:45 98.6 F 77 16 111/64 98 Room Air Laboratory Results - last 24 hr 11/28/23 : Urine Color Yellow, Urine Appearance Clear, Urine pH 7.0, Ur Specific [place] 1.010, Urine Protein Negative, Urine Glucose (UA) Negative, Urine Ketones Negative, Urine Blood Negative, Urine Nitrate Negative, Urine Bilirubin Negative, Urine Urobilinogen 0.2, Ur Leukocyte Esterase Negative, Urine RBC None, Urine WBC Occasional, Ur Squamous Epith Cells 3-5, Urine Bacteria None 11/29/23 06:45: WBC 15.2 H, RBC 4.15 L, Hgb 11.7 L, Hct 35.1 L, MCV 84.5, MCH 28.2, MCHC 33.4, RDW 14.0, Plt Count 210, MPV 10.1, Neut % (Auto) 84.4 H, Lymph % (Auto) 10.1, [place] % (Auto) 4.5, Eos % (Auto) 0.7, Baso % (Auto) 0.3, Neut # (Auto) 12.8 H, Lymph # (Auto) 1.5, [place] # (Auto) 0.7, Eos # (Auto) 0.1, Baso # (Auto) 0.0, Total Counted 100, Neutrophils % (Manual) 81 H, Lymphocytes % (Manual) 16, Monocytes % (Manual) 2, Eosinophils % (Manual) 1, Platelet Estimate Normal, RBC Morphology Normal I & O for Labs for Last 24 Hours: Intake & Output 11/26/23 11/27/23 11/28/23 11/29/23 23:59 23:59 23:59 23:59 Weight 153 lb Head: Present atraumatic and normocephalic ENT: Present mucous membranes moist Neck: Present normal inspection and full ROM Respiratory: Present CTA bilaterally and normal respiratory effort Cardiac: Present Reg Rate and Rhythm GI: Present soft and normal bowel sounds; Absent distention, tenderness or guarding Comments:: Uterine fundus firm and below umbilicus, pfannenstiel incision clean/dry/intact with steri strips in place Rectal (female): Present deferred (female): Present deferred Extremities: Present normal inspection and full ROM; Absent edema Neuro: Present alert, awake and moves all extremities Assessment and Plan *Assessment and plan (1) S/P : Status: Acute Category: Surgical Code(s): Z98.891 - History of uterine scar from previous surgery (2) 38 weeks gestation of : Status: Acute Category: Medical Code(s): Z3A.38 - 38 weeks gestation of (3) Symmetric IUGR complicating , antepartum: Status: Acute Qualifiers: Fetus number: single or unspecified fetus Qualified Code(s): O36.5990 - Maternal care for other known or suspected poor growth, unspecified trimester, not applicable or unspecified Category: Medical Code(s): O36.5990 - Maternal care for other known or suspected poor growth, unspecified trimester, not applicable or unspecified (4) History of delivery: Problem Comment: x 2 Status: Acute Category: Surgical Code(s): Z98.891 - History of uterine scar from previous surgery Plan Continue routine care Encouraged increased ambulation Add miralax BID PRN for constipation which may be contributing to her pain Increase Oxy to 5-10 mg q 4-6 hours Plan d/c home POD # 2 or POD # 3
[2023-11-29] MEDS: OXYCODONE 5MG IMMEDIATE RELEASE TABLET 10 MG PO (16:48)
[2023-11-29] MEDS: PRENATAL MULTIVITAMIN W/IRON 1 EACH PO (16:49)
[2023-11-29 20:35] VITALS: BP 121/81; RESP 18; TEMP 36.9; O2SAT 100
[2023-11-30] MEDS: ACETAMINOPHEN 500MG TAB 1000 MG PO (04:06)
[2023-11-30] MEDS: OXYCODONE 5MG IMMEDIATE RELEASE TABLET 5 MG PO ×2 (04:07→08:31)
[2023-11-30] MEDS: IBUPROFEN 400 MG TABLET 800 MG PO (04:07)
[2023-11-30 08:41] VITALS: BP 113/69; PULSE 87; RESP 18; TEMP 36.3; O2SAT 96
--- NOTE | 2023-11-30 09:04 | EXP.DC.SUM ---
General Admission date:: 11/28/23 Discharge date: 11/30/23 HPI HPI HPI: POD # 2 s/p RLTCS Feeling well. Pain better controlled. Breast and formula feeding. Light lochia. Voiding without difficulty and passing flatus. She had a bowel movement. Tolerating regular diet. Denies fever/chills, chest pain and shortness of breath. No headaches, vision changes, lightheadedness/dizziness. No lower extremity swelling. Ambulating well ad mateus. Hospital Course Hospital Course Hospital Course: Ms Pao Richmond is a 28 yo at 38w3d who presented to [facility] Labor and Delivery for scheduled repeat . History of x 2. complicated by IUGR. Growth ultrasound 11/12 demonstrated 3 %ile, normal S/D ratio, CYNTHIA WNL. BPP 8. She has had good care. She underwent repeat on 11/28/23. She delivered a live female baby, Zealanh, weighing 5 lb 14 oz. APGARs 8 (1 min), 9 (5 min). EBL 200 mL. She did well /postoperatively. Pain controlled. Breast and formula feeding. Light lochia. Voiding without difficulty and passing flatus. She had a BM. Tolerating regular diet. Denies fever/chills, chest pain and shortness of breath. No headaches, dizziness/lightheadedness or vision changes. Vital signs stable, afebrile. Heart regular rate and rhythm. Lungs clear to auscultation. Abdomen soft, nontender. No lower extremity swelling. Ambulating well ad mateus. Normal hospital course. She was discharged to home on POD # 2 with instructions to follow-up in the office in 2 weeks or sooner if needed. Exam Data for Last 24 hours Vital signs and Labs for Last 24 Hours: Temp Pulse Resp BP Pulse Ox O2 Del Method 97.4 F L 87 18 113/69 96 Room Air 11/30/23 08:41 11/30/23 08:41 11/30/23 08:41 11/30/23 08:41 11/30/23 08:41 11/30/23 08:41 Laboratory Results - last 24 hr 11/29/23 06:45: Total Counted 100, Neutrophils % (Manual) 81 H, Lymphocytes % (Manual) 16, Monocytes % (Manual) 2, Eosinophils % (Manual) 1, Platelet Estimate Normal, RBC Morphology Normal I & O for Last 24 hours: Intake & Output 11/27/23 11/28/23 11/29/23 11/30/23 23:59 23:59 23:59 23:59 Weight 153 lb Constitutional Constitutional: no acute distress and cooperative *Routine HEENT Exam Head: Present normocephalic and atraumatic Eye: Absent conjunctivae pink ENT: Present mucous membranes moist *Routine Neck Exam Neck: Present full ROM *Routine Respiratory Exam Respiratory: Present CTA bilaterally and normal respiratory effort *Routine Cardiovascular Exam Cardiovascular: Present RRR *Routine Abdominal Exam Abdominal: Present soft and normoactive bowel sounds; Absent tenderness or distended Comments: Pfannenstiel incision clean/dry/intact with steri strips in place *Routine Rectal Exam Patient deferred: visual exam *Routine Exam Patient deferred: external exam *Routine Extremities Exam Extremities: Present full ROM; Absent edema or calf tenderness *Routine Neurological Exam Neurological: Present alert, moving all extremities and normal speech Routine Psychiatric Exam Psychiatric: Present normal affect and cooperative Results Data Completed and Pending Labs on day of discharge: Labs from last 24 hours 11/29/23 06:45 Total Counted 100 Neutrophils % (Manual) 81 H Lymphocytes % (Manual) 16 Monocytes % (Manual) 2 Eosinophils % (Manual) 1 Platelet Estimate Normal RBC Morphology Normal DS: Diagnosis Discharge Diagnosis (1) S/P : Status: Acute Code(s): Z98.891 - History of uterine scar from previous surgery (2) 38 weeks gestation of : Status: Acute Code(s): Z3A.38 - 38 weeks gestation of (3) Symmetric IUGR complicating , antepartum: Status: Acute Code(s): O36.5990 - Maternal care for other known or suspected poor growth, unspecified trimester, not applicable or unspecified Qualifiers: Fetus number: single or unspecified fetus Qualified Code(s): O36.5990 - Maternal care for other known or suspected poor growth, unspecified trimester, not applicable or unspecified (4) History of delivery: Status: Acute Code(s): Z98.891 - History of uterine scar from previous surgery Problem details: x 2 Meds Home Medications and Allergies Home Medications Medication Instructions Recorded Confirmed Type vitamin with calcium 1 tab PO DAILY 07/24/23 11/28/23 History no.72-iron 27 mg-folic acid 1 mg tablet (WesTab Plus) ibuprofen 800 mg tablet 800 mg PO Q8H PRN pain #20 tabs 11/30/23 Rx oxycodone 5 mg tablet 5 mg PO Q4HP PRN Moderate Pain 11/30/23 Rx (4-6) #20 tabs New Prescriptions to Start Prescriptions: ibuprofen Siobhan Sherman oxycodone Siobhan Sherman Allergies Allergy/AdvReac Type Severity Reaction Status Date / Time amoxicillin Allergy Intermediate Rash Verified 11/27/23 14:23 Discharge Plan Disposition Patient Disposition: Home, Self-Care Condition: Good Discharge Order Discharge Orders: Discharge Order (Routine); Ordered 11/30/23 Ordered By: Siobhan Shreman Follow up Plan Follow up with: Siobhan Sherman DO [Staff Physician] - 12/14/23 3:15 pm Prescriptions/Medication Reconciliation: New oxycodone 5 mg Tablet 5 mg PO Q4HP PRN (Reason: Moderate Pain (4-6)) Qty: 20 0RF ibuprofen 800 mg tablet 800 mg PO Q8H PRN (Reason: pain) Qty: 20 0RF Continued WesTab Plus 27 mg iron- 1 mg tablet 1 tab PO DAILY Patient Comments: TAKE ONE TABLET BY MOUTH EVERY DAY Problem Reconciliation Problems Reviewed?: Yes Patient Discharge Instructions ACTIVITY: Limited activity DIET: continue same diet and regular diet Additional Instructions: Discharge: 1. Take 800 mg Ibuprofen every 8 hours as needed for pain. You can also take 500-1000 mg of Tylenol in between doses, every 6-8 hours. If pain persists you can take Oxycodone 5 mg, 1 tablet every 4-6 hours or longer as needed. 2. Nothing in the vagina for 6 weeks - no intercourse, douching or tampons. No tub baths/hot tubs or swimming pools - Drink plenty of fluids. - No strenuous activity or driving until released by your doctor. - Don't lift anything heavier than your . 3. Reasons to return to L&D or call On-Call doctor - fever (greater than 100.4) - heavy vaginal bleeding (soaking through 1 pad in less than 2 hours) - vaginal discharge (malodorous and/or purulent) - severe headaches not resolved by medication or rest and leg tenderness/edema 4. depression/blues - Normal to feel anxious/overwhelmed for first 2 weeks - Talk to your doctor if: severe anxiety, trouble bonding with baby, withdrawing from other family members, thoughts of harming yourself or others Siobhan Sherman DO [facility] [phone] Patient Instructions: Depression, Hemorrhage, DI for , DI for Pre-eclampsia, [facility] Post Discharge Instructions Providers Primary Care Provider: Terry Jarvis Admit Provider: Siobhan Sherman Attending Provider: Siobhan Sherman
== END 2023-11-30 12:15 | disposition home or self-care (01) | DRG 788 ==
PROVIDERS: Admitting Provider Obstetrics & Gynecology; PCP Internal Medicine Adolescent Medicine; Visit Provider Obstetrics & Gynecology
PROC: 10D00Z1 Extraction of Products of Conception, Low, Open Approach (ICD-10-PCS; principal; 2023-11-28 07:30)
DX: O34.211 Maternal care for low transverse scar from previous cesarean delivery (principal); Z3A.38 38 weeks gestation of pregnancy; Z37.0 Single live birth; O99.334 Smoking (tobacco) complicating childbirth; F17.290 Nicotine dependence, other tobacco product, uncomplicated; O69.81X0 Labor and delivery complicated by cord around neck, without compression, not applicable or unspecified; O36.5930 Maternal care for other known or suspected poor fetal growth, third trimester, not applicable or unspecified; N85.8 Other specified noninflammatory disorders of uterus
CPT/HCPCS: 59514; 36415; 59025; 80053; 80307; 81001; 85007; 85025; 86850; 87086; 94761; G0283